=== PATIENT | male | born 1945 | race Hispanic/Latino ===

== ENCOUNTER 2018-11-17 10:06 | Inpatient (IN) | payer MEDICARE ==
--- NOTE | 2018-11-17 11:03 | ED PDOC ---
Arrival/HPI - General Chief Complaint: Altered Mental Status Time Seen by Provider: 11/17/18 10:08 Historian: Spouse - History of Present Illness Narrative History of Present Illness (Text): 11/17/18 11:00 A 73 year old male is brought into the emergency department via EMS for further evaluating of altered mental status. Patient's who is at bedside states that their daughter noticed the patient mumbling, confused, and not acting like himself this morning. The patient's reports that she last saw the patient acting normally last night. Patient is normally able to ambulate, but was unable to do so this morning. Primary Care: JOSE CRUZ [facility] Urologist: Dr. Bay Neurologist: Dr. Sequeira Sales Relationship Manager: Dr. Reid Time/Duration: Other (This Morning) Symptom Onset: Sudden Symptom Course: Unchanged Activities at Onset: Rest, Light Context: Home Past Medical History - Provider Review Nursing Documentation Reviewed: Yes - Travel History Have you recently traveled outside [place] w/in the past 3 mons?: No - Infectious Disease Hx of Infectious Diseases: None - Tetanus Immunization Tetanus Immunization: Unknown - Cardiac Hx Cardiac Disorders: No - Pulmonary Hx Respiratory Disorders: Yes Hx Chronic Obstructive Pulmonary Disease (COPD): Yes Hx Emphysema: Yes - Neurological Hx Neurological Disorder: No - HEENT Hx HEENT Disorder: No - Renal Hx Renal Disorder: Yes Hx Kidney Stones: Yes - Endocrine/Metabolic Hx Endocrine Disorders: Yes Hx Diabetes Mellitus Type 2: Yes - Hematological/Oncological Hx Blood Disorders: No - Integumentary Hx Dermatological Disorder: No - Musculoskeletal/Rheumatological Hx Musculoskeletal Disorders: No - Gastrointestinal Hx Gastrointestinal Disorders: Yes Other/Comment: hiatal hernia - Genitourinary/Gynecological Hx Genitourinary Disorders: No - Psychiatric Hx Psychophysiologic Disorder: No Hx Substance Use: No - Past Surgical History Past Surgical History: No Previous - Surgical History Hx Cardiac Catheterization: Yes Hx Coronary Stent: Yes (x1) - Anesthesia Hx Anesthesia Reactions: No Hx Malignant Hyperthermia: No - Suicidal Assessment Feels Threatened In Home Enviroment: No Family/Social History - Physician Review Nursing Documentation Reviewed: Yes Family/Social History: No Known Family HX Smoking Status: Former Smoker Hx Alcohol Use: No Hx Substance Use: No Hx Substance Use Treatment: No Allergies/Home Meds Allergies/Adverse Reactions: Allergies Penicillins Allergy (Verified 11/17/18 13:52) ANAPHYLAXIS Home Medications: Home Meds Medication Instructions Recorded Confirmed Gabapentin [Neurontin] 300 mg PO BID 11/17/18 11/17/18 Gabapentin [Neurontin] 300 mg PO BID 11/17/18 11/17/18 GlipiZIDE [Glipizide] 10 mg PO ACBD 11/17/18 11/17/18 GlipiZIDE [Glipizide] 10 mg PO BID 11/17/18 11/17/18 Insulin Detemir [Levemir] 18 unit SC BID 11/17/18 11/17/18 Insulin Detemir [Levemir] 30 unit SC BID 11/17/18 11/17/18 Meloxicam [Mobic] 15 mg PO DAILY 11/17/18 11/17/18 Metformin HCl [Glucophage] 1,000 mg PO BID 11/17/18 11/17/18 traZODone [trazODONE HYDROCHLORIDE] 50 mg PO HS 11/17/18 11/17/18 Review of Systems - Physician Review All systems were reviewed & negative as marked: Yes - Review of Systems Systems not reviewed;Unavailable: Altered Mental Status Physical Exam Vital Signs Reviewed: Yes Vital Signs Temp Pulse Resp BP Pulse Ox 11/17/18 10:18 99.7 F H 105 H 18 118/61 96 Temperature: Febrile Blood Pressure: Normal Pulse: Tachycardic Respiratory Rate: Normal Appearance: Positive for: Ill-Appearing Mental Status: No: Alert and Oriented X 3 (Alert and Oriented x 1) Finger Stick Blood Glucose: 222 - Systems Exam Head: Present: Atraumatic, Normocephalic, Other (Coarse Facies) Pupils: Present: PERRL Extroacular Muscles: Present: EOMI Conjunctiva: Present: Normal Mouth: Present: Dry Neck: Present: Normal Range of Motion Respiratory/Chest: Present: Clear to Auscultation, Decreased Breath Sounds (Due to body habitus. ). No: Wheezes, Rales, Rhonchi Cardiovascular: Present: Tachycardic Abdomen: No: Tenderness, Distention, Peritoneal Signs Back: Present: Normal Inspection Upper Extremity: Present: Normal Inspection. No: Cyanosis, Edema Lower Extremity: Present: Normal Inspection. No: Edema Neurological: No: Speech Normal (Intermittent verbal responses) Skin: Present: Warm, Dry, Normal Color. No: Rashes Psychiatric: Present: Alert. No: Oriented x 3 (oriented x 1) Medical Decision Making ED Course and Treatment: 11/17/18 11:09 Impression: A 73 year old male is brought into the emergency department for further evaluation of AMS this morning. Differential Diagnoses Includes But Is Not Limited To: --Sepsis --UTI --PNA Plan: -- Head CT -- EKG -- Blood/ Urine Culture -- Urinalysis -- Labs -- Reassess and disposition Prior Visits: Notes and results from previous visits were reviewed. Progress Notes: 11/17/18 23:15 Labs reviewed with no leukocytosis noted, but slightly elevated blood sugar. Case discussed in detail with Dr. Canseco(medical service) who accepts patient for admission. - Lab Interpretations Lab Results: 11/17/18 11:18 11/17/18 11:18 Lab Results 11/17/18 12:00: Prostate Specific Ag 5.6 H 11/17/18 11:24: Urine Color Yellow, Urine Appearance Clear, Urine pH 6.0, Ur Specific [place] >= 1.030, Urine Protein Trace H, Urine Glucose (UA) Negative, Urine Ketones 15 H, Urine Blood Trace-lysed H, Urine Nitrate Negative, Urine Bilirubin Negative, Urine Urobilinogen 0.2, Ur Leukocyte Esterase Trace H, Urine RBC 1 - 3 H, Urine WBC 2 - 5, Ur Epithelial Cells None, Urine Bacteria Mod 11/17/18 11:18: TSH 3rd Generation 1.61 11/17/18 11:18: Sodium 136, Chloride 102, Potassium 4.2, Carbon Dioxide 21, Anion Gap 17, BUN 15, Creatinine 0.7 L, Est GFR ( Amer) > 60, Est GFR (Non-Af Amer) > 60, Random Glucose 178 H, Calcium 9.8, Phosphorus 3.9, Magnesium 1.7, Total Bilirubin 0.9, AST 21, ALT 17, Alkaline Phosphatase 66, Total Protein 7.8, Albumin 4.3, Globulin 3.5, Albumin/Globulin Ratio 1.3 11/17/18 11:18: PT 14.1 H, INR 1.25, APTT 32.7 11/17/18 11:18: WBC 7.7, RBC 4.43, Hgb 13.7 L, Hct 40.3 L, MCV 91.0, MCH 30.9, MCHC 34.0, RDW 12.7, Plt Count 207, MPV 10.0, Neut % (Auto) 79.7 H, Lymph % (Auto) 7.3 L, [place] % (Auto) 9.8 H, Eos % (Auto) 3.1, Baso % (Auto) 0.1, Lymph # (Auto) 0.6 L, [place] # (Auto) 0.8 H, Eos # (Auto) 0.2, Baso # (Auto) 0.01, Absolute Neuts (auto) 6.10 11/17/18 11:15: pO2 48, VBG pH 7.39, VBG pCO2 35.0 L, VBG HCO3 21.2, VBG Total CO2 22.3, VBG O2 Sat (Calc) 89.1 H, VBG Base Excess -3.1 L, VBG Potassium 4.0, Sodium 134.0, Chloride 102.0, Glucose 188 H, Lactate 1.9, FiO2 21.0, Venous Blood Potassium 4.0 11/17/18 10:14: POC Glucose (mg/dL) 222 H I have reviewed the lab results: Yes - RAD Interpretation Narrative RAD Interpretations (Text): PROCEDURE: CT HEAD WITHOUT CONTRAST. Dictator : Brian Ruby MD Report Date : 11/17/2018 12:05:15 IMPRESSION: No evidence of acute intracranial hemorrhage or CT evidence of acute territorial infarct. Volume loss and white matter changes likely represent chronic microvascular ischemic disease. Chest X-ray Dictator : Brian Ruby MD Report Date : 11/17/2018 12:25:15 IMPRESSION: No active disease. Widening of the mediastinum noted. If clinically warranted further evaluation by CT is suggested to exclude aortic aneurysm or dissection. Radiology Orders: 11/17/18 10:40 CHEST PORTABLE [RAD] Stat 11/17/18 10:42 HEAD W/O CONTRAST [CT] Stat - EKG Interpretation Interpreted by ED Physician: Yes Type: 12 lead EKG - Medication Orders Current Medication Orders: Acetaminophen (Tylenol 325mg Tab) 650 mg PO Q4H PRN PRN Reason: Fever >100.4 F Last Admin: 11/25/18 18:06 Dose: 650 mg MAR Pain/Vitals Document 11/25/18 18:06 VIRER (Rec: 11/25/18 18:06 VIRER [id number] Pain Reassessment Is This A Pain ReAssessment? No Sleep Is patient sleeping during reassessment? No Presence of Pain Presence of Pain Yes Aspirin (Ecotrin) 81 mg PO DAILY [facility] Last Admin: 11/29/18 10:21 Dose: 81 mg Atorvastatin Calcium (Lipitor) 40 mg PO DIN [facility] Last Admin: 11/28/18 17:30 Dose: 40 mg Famotidine (Pepcid) 20 mg PO DAILY [facility] Last Admin: 11/29/18 10:21 Dose: 20 mg Gabapentin (Neurontin) 300 mg PO BID [facility]; Protocol Last Admin: 11/29/18 10:21 Dose: 300 mg Behavioural Document 11/29/18 10:21 CV (Rec: 11/29/18 10:21 CV [id number]) Maintenance Maintenance Dose Yes Guaifenesin (Robitussin) 100 mg PO Q6 [facility] Last Admin: 11/29/18 12:27 Dose: Not Given Non-Admin Reason: Patient Refused Sodium Chloride (Sodium Chloride 0.45%) 1,000 mls @ 50 mls/hr IV .Q20H [facility] Last Admin: 11/29/18 05:03 Dose: Not Given Non-Admin Reason: bag still running Insulin Detemir (Levemir) 25 unit SC ACBD [facility] Last Admin: 11/29/18 10:22 Dose: 25 units MAR Blood Glucose Document 11/29/18 10:22 CV (Rec: 11/29/18 10:22 CV [facility] [id number]) Blood Glucose Finger Stick Blood Glucose (70-120) 144 Subcutaneous Administrations Document 11/29/18 10:22 CV (Rec: 11/29/18 10:22 CV [id number]) Injection Site MAR Injection Site Right Abdomen Charges for Administration # of Subcutaneous Administrations 1 Insulin Human Regular (Humulin R Med) 0 units SC ACHS [facility]; Protocol Last Admin: 11/29/18 12:12 Dose: Not Given Non-Admin Reason: not eating that much Levalbuterol HCl (Xopenex) 0.63 mg IH TIDRESP [facility] Last Admin: 11/29/18 13:06 Dose: 0.63 mg Lisinopril (Zestril) 10 mg PO DAILY [facility] Last Admin: 11/29/18 10:21 Dose: 10 mg MAR Pulse and Blood Pressure Document 11/29/18 10:21 CV (Rec: 11/29/18 10:21 CV [id number]) Pulse Pulse Rate (60-90 beats/min) 86 Blood Pressure Blood Pressure (100/60-150/90 mm Hg) 125/70 Mupirocin (Bactroban Ointment) 0 gm TOP BID [facility] Last Admin: 11/29/18 10:23 Dose: 1 applic Nitroglycerin (Nitro-Bid 2% Oint) 1 ea TOP Q4H PRN PRN Reason: hypertension Ondansetron HCl (Zofran Inj) 4 mg IVP Q8H PRN PRN Reason: Nausea/Vomiting Last Admin: 11/18/18 14:17 Dose: 4 mg IVP Administration Document 11/18/18 14:17 LMN (Rec: 11/18/18 14:17 LMN [facility] [id number] Charges for Administration # of IVP Administrations 1 Discontinued Medications Acetaminophen (Tylenol 325mg Tab) 650 mg PO STAT [facility] Stop: 11/18/18 05:37 Last Admin: 11/18/18 05:46 Dose: 650 mg MAR Pain/Vitals Document 11/18/18 05:46 FDE (Rec: 11/18/18 05:46 FDE [id number]) Pain Reassessment Is This A Pain ReAssessment? Yes Sleep Is patient sleeping during reassessment? Yes Presence of Pain Presence of Pain No Acetaminophen (Tylenol 120mg Supp) 120 mg RC STAT STA Stop: 11/19/18 05:56 Acetaminophen (Tylenol 650 Mg Supp) 650 mg RC STAT STA Stop: 11/19/18 05:56 Last Admin: 11/19/18 06:13 Dose: 650 mg MAR Pain/Vitals Document 11/19/18 06:13 ROBBK (Rec: 11/19/18 06:13 ROBBK [id number]) Vitals Temperature (97.6 F-99.6 F) 102.0 F Temperature Source Oral Atorvastatin Calcium (Lipitor) 10 mg PO DIN [facility] Last Admin: 11/26/18 17:54 Dose: 10 mg Famotidine (Pepcid) 20 mg IVP DAILY [facility] Last Admin: 11/20/18 09:55 Dose: 20 mg IVP Administration Document 11/20/18 09:55 KL (Rec: 11/20/18 09:55 KL [facility] [id number]) Charges for Administration # of IVP Administrations 1 Heparin Sodium (Porcine) (Heparin) 5,000 units SC Q8 [facility]; Protocol Last Admin: 11/26/18 15:40 Dose: Not Given Non-Admin Reason: d/c Meropenem/Sodium Chloride (Merrem Iv 500 Mg/Ns 50 Ml) 500 mg in 50 mls @ 100 mls/hr IVPB STAT STA; Protocol Stop: 11/17/18 13:10 Last Admin: 11/17/18 13:19 Dose: 100 mls/hr eMAR Start Stop Document 11/17/18 13:19 OCS (Rec: 11/17/18 13:20 OCS [id number]) Intravenous Solution Start Date 11/17/18 Start Time 13:19 End Date 11/17/18 End time 13:49 Total Infusion Time 30 Sodium Chloride (Sodium Chloride 0.45%) 1,000 mls @ 80 mls/hr IV .[id number] [facility] Last Admin: 11/26/18 06:55 Dose: 80 mls/hr eMAR Start Stop Document 11/26/18 06:55 MB (Rec: 11/26/18 06:55 MB [facility] [id number]) Intravenous Solution Start Date 11/26/18 Start Time 06:55 Levofloxacin/Dextrose (Levaquin 500mg) 500 mg in 100 mls @ 100 mls/hr IVPB DAILY [facility]; Protocol Last Admin: 11/19/18 10:29 Dose: 100 mls/hr eMAR Start Stop Document 11/19/18 10:29 RDS (Rec: 11/19/18 10:29 RDS [facility] [id number]) Intravenous Solution Start Date 11/19/18 Start Time 10:29 End Date 11/19/18 End time 11:29 Total Infusion Time 60 Influenza Virus Vaccine (Flucelvax Quad 9322-6601 Syr) 60 mcg IM .ONCE ONE Stop: 11/17/18 17:52 Insulin Detemir (Levemir) 15 unit SC ACBD [facility] Last Admin: 11/28/18 08:11 Dose: 15 unit MAR Blood Glucose Document 11/28/18 08:11 CV (Rec: 11/28/18 08:12 CV [facility] [id number]) Blood Glucose Finger Stick Blood Glucose (70-120) 148 Subcutaneous Administrations Document 11/28/18 08:11 CV (Rec: 11/28/18 08:12 CV [id number]) Injection Site MAR Injection Site Left Abdomen Charges for Administration # of Subcutaneous Administrations 1 Insulin Human Regular (Humulin R Low) 0 units SC ACHS [facility]; Protocol Last Admin: 11/18/18 12:28 Dose: 2 units MAR Blood Glucose Document 11/18/18 12:28 LMN (Rec: 11/18/18 12:28 LMN [id number]) Blood Glucose Finger Stick Blood Glucose (70-120) 207 Subcutaneous Administrations Document 11/18/18 12:28 LMN (Rec: 11/18/18 12:28 LMN [id number]) Injection Site MAR Injection Site Right Arm Charges for Administration # of Subcutaneous Administrations 1 Lisinopril (Zestril) 2.5 mg PO DAILY [facility] Last Admin: 11/26/18 09:41 Dose: 2.5 mg MAR Pulse and Blood Pressure Document 11/26/18 09:41 AJ (Rec: 11/26/18 09:42 AJ [id number]) Pulse Pulse Rate (60-90 beats/min) 72 Blood Pressure Blood Pressure (100/60-150/90 mm Hg) 165/72 Lorazepam (Ativan) 1 mg IVP ONCE ONE; Protocol Stop: 11/20/18 17:26 Lorazepam (Ativan) 1 mg IVP ONCE ONE; Protocol Stop: 11/27/18 09:41 Last Admin: 11/27/18 09:56 Dose: 1 mg IVP Administration Document 11/27/18 09:56 AJ (Rec: 11/27/18 09:57 AJ [facility] [id number]) Charges for Administration # of IVP Administrations 1 Behavioural Document 11/27/18 09:56 AJ (Rec: 11/27/18 09:57 AJ [facility] [id number]) Maintenance Maintenance Dose Yes Nonmedicinal Nonmedicinal Interventions Redirect Therapeutic Communication Behavior Behavior for Medication: Anxiety Ondansetron HCl (Zofran Inj) 4 mg IVP STAT STA Stop: 11/17/18 12:03 Last Admin: 11/17/18 12:14 Dose: 4 mg IVP Administration Document 11/17/18 12:14 OCS (Rec: 11/17/18 12:14 OCS [id number]) Charges for Administration # of IVP Administrations 1 Oseltamivir Phosphate (Tamiflu Cap) 75 mg PO ONCE ONE; Protocol Stop: 11/18/18 20:56 Last Admin: 11/18/18 21:29 Dose: Not Given Non-Admin Reason: NPO Oseltamivir Phosphate (Tamiflu Cap) 30 mg PO DAILY [facility]; Protocol Last Admin: 11/20/18 09:54 Dose: 30 mg Oseltamivir Phosphate (Tamiflu Cap) 75 mg PO BID [facility]; Protocol Last Admin: 11/25/18 09:47 Dose: 75 mg Pneumococcal Polyvalent Vaccine (Pneumovax 23 Vaccine) 0.5 ml IM .ONCE ONE Stop: 11/17/18 17:52 Potassium Chloride (K-Dur 20 Meq Er Tab) 40 meq PO ONCE ONE Stop: 11/26/18 11:41 Last Admin: 11/26/18 12:24 Dose: 40 meq - Scribe Statement The provider has reviewed the documentation as recorded by the Miguelibgarret Begum Provider Scribe Attestation: All medical record entries made by the Scribe were at my direction and personally dictated by me. I have reviewed the chart and agree that the record accurately reflects my personal performance of the history, physical exam, medical decision making, and the department course for this patient. I have also personally directed, reviewed, and agree with the discharge instructions and disposition. Disposition/Present on Arrival - Present on Arrival Any Indicators Present on Arrival: No History of DVT/PE: No History of Uncontrolled Diabetes: No Urinary Catheter: No History of Decub. Ulcer: No History Surgical Site Infection Following: None - Disposition Have Diagnosis and Disposition been Completed?: Yes Diagnosis: Hyperglycemia, Altered mental status Disposition: HOSPITALIZED Disposition Time: 18:00 Patient Plan: Admission Condition: FAIR
[2018-11-17 11:29] LABS: VENOUS BLOOD GAS BASE EXCESS -3.1 mmol/L (0.0-2.0); VENOUS BLOOD GAS PO2 48 mm/Hg (30-55); VENOUS BLOOD PH 7.39 (7.32-7.43)
[2018-11-17 11:41] LABS: BASO # 0.01 K/mm3 (0.0-2.0); BASO % 0.1 % (0.0-3.0); EOS # 0.2 (0.0-0.7); EOS % 3.1 % (1.5-5.0); HEMOGLOBIN 13.7 g/dL (14.0-18.0); LYMPH # 0.6 (1.2-3.4); LYMPH % 7.3 % (22.0-35.0); MEAN CORPUSCULAR HEMOGLOBIN 30.9 pg (25.0-35.0); MONO # 0.8 (0.1-0.6); MONO % 9.8 % (1.0-6.0); RBC 4.43 10^6/uL (3.5-6.1); RED CELL DISTRIBUTION WIDTH 12.7 % (11.5-14.5); WHITE BLOOD COUNT 7.7 10^3/uL (4.5-11.0)
[2018-11-17 11:52] LABS: ALB/GLOB RATIO 1.3 (1.1-1.8); ALBUMIN 4.3 g/dL (3.0-4.8); ALT/SGPT 17 U/L (7-56); AST/SGOT 21 U/L (17-59); BLOOD UREA NITROGEN 15 mg/dL (7-21); CALCIUM 9.8 mg/dL (8.4-10.5); GFR NON-AFRICAN AMERICAN > 60; INR 1.25; PARTIAL THROMBOPLASTIN TIME 32.7 Seconds (26.9-38.3); PROTHROMBIN TIME 14.1 SECONDS (9.4-12.5)
[2018-11-17 11:58] LABS: URINE BILIRUBIN NEGATIVE (NEGATIVE); URINE BLOOD TRACE-LYSED (NEGATIVE); URINE GLUCOSE (UA) NEGATIVE (NEGATIVE); URINE LEUKOCYTE ESTERASE TRACE Leu/uL (NEGATIVE); URINE PROTEIN TRACE mg/dL (<30 mg/dL); URINE UROBILINOGEN 0.2 E.U./dL (<1 E.U./dL)
[2018-11-17 11:59] LABS: URINE APPEARANCE CLEAR (CLEAR); URINE COLOR YELLOW (YELLOW)
[2018-11-17 12:08] LABS: URINE BACTERIA MOD /hpf
--- NOTE | 2018-11-17 12:08 | CT ---
Date of service: 11/17/2018 PROCEDURE: CT HEAD WITHOUT CONTRAST. HISTORY: altered mental status COMPARISON: None available. TECHNIQUE: Axial computed tomography images were obtained through the head/brain without intravenous contrast. Radiation dose: Total exam DLP = 1041.37 mGy-cm. This CT exam was performed using one or more of the following dose reduction techniques: Automated exposure control, adjustment of the mA and/or kV according to patient size, and/or use of iterative reconstruction technique. FINDINGS: HEMORRHAGE: No intracranial hemorrhage. BRAIN: There is focal encephalomalacia at the medial aspect of the right temporal lobe likely represent old infarct. There is also sub centimeter encephalomalacia at anterior aspect of the right coronal radiata likely represent old lacunar infarct. Atrophy and white matter changes likely represent chronic microvascular ischemic disease. VENTRICLES: Unremarkable. No hydrocephalus. CALVARIUM: Unremarkable. PARANASAL SINUSES: Unremarkable as visualized. No significant inflammatory changes. MASTOID AIR CELLS: Unremarkable as visualized. No inflammatory changes. OTHER FINDINGS: None. IMPRESSION: No evidence of acute intracranial hemorrhage or CT evidence of acute territorial infarct. Volume loss and white matter changes likely represent chronic microvascular ischemic disease.
--- NOTE | 2018-11-17 12:29 | RAD ---
Date of service: 11/17/2018 HISTORY: altered mental status COMPARISON: Comparison is made to the previous study dated 08/31/2013 FINDINGS: LUNGS: No evidence of new infiltrate or consolidation in the lungs. PLEURA: No significant pleural effusion identified, no pneumothorax apparent. CARDIOVASCULAR: Interval widening of the mediastinum noted which could be due to increase in the size of the thoracic aorta. Normal cardiac size. No pulmonary vascular congestion. OSSEOUS STRUCTURES: No significant abnormalities. VISUALIZED UPPER ABDOMEN: Normal. OTHER FINDINGS: None. IMPRESSION: No active disease. Widening of the mediastinum noted. If clinically warranted further evaluation by CT is suggested to exclude aortic aneurysm or dissection.
[2018-11-17] MEDS ORDERED: MEROPENEM 500 MG in NS 500 MG/50 ML BAG IVPB STA (12:41)
--- NOTE | 2018-11-17 13:00 | CARD ---
APPROVED REPORT Date of service: 11/17/2018 EKG Measurement Heart [id number] ND 176P [id number] <Conclusion> Sinus tachycardia Right bundle branch block Abnormal ECG
[2018-11-17] MEDS ORDERED: Iohexol 350 MG/100 ML VIAL ONE ×2 (13:43→14:42)
[2018-11-17] MEDS: Sodium Chloride 0.45% 1,000 ML IV SCH (17:48)
[2018-11-17] MEDS ORDERED: Influenza Vaccine 60 mcg/0.5 mL SYR (4YR UP) IM ONE (17:51)
[2018-11-17] MEDS ORDERED: Pneumococcal 23-Valent Vaccine IM ONE (17:51)
[2018-11-17 17:52] VITALS: BMI 30.7
[2018-11-17] MEDS: Insulin Reg-LOW-Coverage SC SCH (22:00)
[2018-11-18] MEDS: Sodium Chloride 0.45% 1,000 ML IV SCH ×2 (05:16→22:10)
--- NOTE | 2018-11-18 06:21 | CP.PCM.PN ---
Subjective - Date & Time of Evaluation Date of Evaluation: 11/18/18 Time of Evaluation: 06:08 - Subjective Subjective: It was requested to Co-sign order of tylenol which was ordered for temp 101.3*F. Patient was seen. He is not communicating much. Tries to verbalize indistinct speech. As per nurse has no other complaints. Medical record was reviewed. This 73 year old white male was admitted for altered mental status, confusion. Blood culture,urine culture were done ,received merem in the ER. Has PMH of DM,HTN,CAD,COPD. Objective - Vital Signs/Intake and Output Vital Signs (last 24 hours): Temp Pulse Resp BP Pulse Ox 101.3 F H 95 H 18 150/79 94 L 11/18/18 05:39 11/18/18 05:39 11/18/18 05:39 11/18/18 05:39 11/18/18 05:39 Intake and Output: 11/17/18 11/18/18 18:59 06:59 Intake Total 300 200 Balance 300 200 - Medications Medications: Current Medications Acetaminophen (Tylenol 325mg Tab) 650 mg PO Q4H PRN PRN Reason: Fever >100.4 F Sodium Chloride (Sodium Chloride 0.45%) 1,000 mls @ 80 mls/hr IV .[id number] [facility] Last Admin: 11/18/18 05:16 Dose: 80 mls/hr Insulin Human Regular (Humulin R Low) 0 units SC ACHS [facility]; Protocol Last Admin: 11/17/18 22:00 Dose: Not Given - Labs Labs: 11/17/18 11:18 11/17/18 11:18 PT 14.1 SECONDS (9.4-12.5) H 11/17/18 11:18 INR 1.25 11/17/18 11:18 APTT 32.7 Seconds (26.9-38.3) 11/17/18 11:18 - Constitutional Appears: Well, No Acute Distress - Head Exam Head Exam: ATRAUMATIC, NORMAL INSPECTION, NORMOCEPHALIC - Eye Exam Eye Exam: Normal appearance - ENT Exam ENT Exam: Normal External Ear Exam - Neck Exam Neck Exam: Normal Inspection - Respiratory Exam Respiratory Exam: NORMAL BREATHING PATTERN - Cardiovascular Exam Cardiovascular Exam: absent: JVD - GI/Abdominal Exam GI & Abdominal Exam: absent: Distended - Rectal Exam Rectal Exam: Deferred - Exam Additional comments: Deferred. - Extremities Exam Extremities Exam: Normal Inspection - Back Exam Back Exam: NORMAL INSPECTION - Neurological Exam Neurological Exam: Awake - Psychiatric Exam Psychiatric exam: Normal Affect, Normal Mood - Skin Skin Exam: Normal Color Assessment and Plan - Assessment and Plan (Free Text) Assessment: Fever. Altered mental status. Borderline anemia. Hyperglycemia. Elevated PSA. Obesity. DM. HTN. COPD. Plan: Tylenol was ordered for fever. Awaiting neurology consult. Urine has leukocyte esterase positive. Need to continue IV antibiotic. Continue present management.
[2018-11-18 08:37] LABS: BASO # 0.02 K/mm3 (0.0-2.0); BASO % 0.3 % (0.0-3.0); EOS # 0.1 (0.0-0.7); HEMOGLOBIN 13.2 g/dL (14.0-18.0); LYMPH # 0.9 (1.2-3.4); LYMPH % 14.6 % (22.0-35.0); MEAN CELL VOLUME 91.8 fl (80.0-105.0); MEAN CORPUSCULAR HEMOGLOBIN 30.2 pg (25.0-35.0); MEAN CORPUSCULAR HGB CONC 32.9 g/dl (31.0-37.0); MEAN PLATELET VOLUME 10.1 fl (7.0-11.0); MONO # 0.9 (0.1-0.6); MONO % 15.1 % (1.0-6.0); RBC 4.37 10^6/uL (3.5-6.1); WHITE BLOOD COUNT 6.2 10^3/uL (4.5-11.0)
[2018-11-18 08:54] LABS: BLOOD UREA NITROGEN 14 mg/dL (7-21); CALCIUM 9.3 mg/dL (8.4-10.5); GFR NON-AFRICAN AMERICAN > 60
[2018-11-18] MEDS: Insulin Reg-LOW-Coverage SC SCH ×2 (12:28)
[2018-11-18] MEDS: levoFLOXacin 500 mg in D5W 500 MG/100 ML BAG IVPB SCH (12:28)
[2018-11-18] MEDS: Levalbuterol 0.63 MG/3 ML Inhal Soln UD IH SCH ×2 (14:17→21:00)
--- NOTE | 2018-11-18 15:47 | CON ---
DATE: 11/18/2018 CHIEF COMPLAINT: Altered mental status. HISTORY OF PRESENT ILLNESS: This is a 73-year-old male, with history of type 2 diabetes mellitus, hypertension, coronary artery disease, and COPD, who was admitted for altered mental status, confused, noticed by , mumbling and not acting himself. He was brought to hospital for further evaluation. CAT scan of the head showed old encephalomalacia in the right temporal and right newman radiata consistent with old infarcts, lacunar type. The patient is lethargic, but follows simple commands. He has subtle left-sided weakness, likely from prior CVA. He withdraws to localized noxious stimulus. He had elevated temperature of 101.3 this morning. There are some hypoglycemic events and mildly dehydrated. PAST MEDICAL HISTORY: As above. FAMILY HISTORY: Noncontributory. SOCIAL HISTORY: No illicit drug use, smoking, or EtOH abuse. ALLERGIES: ALLERGIC TO PENICILLIN. MEDICATIONS: Reviewed by nurse reconciliation sheet. REVIEW OF SYSTEMS: A 14-point review of systems is negative except as per HPI. PHYSICAL EXAMINATION: GENERAL: The patient is lethargic; in no acute distress. VITAL SIGNS: Temperature 99.5, pulse of 83, blood pressure 130/70, and respiratory rate of 18. HEENT: Atraumatic and normocephalic. PERRLA. Extraocular muscles intact. NECK: Supple. No JVD. No adenopathy noted. LUNGS: Clear to auscultation. No adventitious sounds. HEART: S1 and S2, normal rate and rhythm. No murmurs, rubs, or gallops. ABDOMEN: Soft and nontender. Normoactive bowel sounds present. EXTREMITIES: No clubbing. No cyanosis. Peripheral pulses are 2+ bilaterally. NEUROLOGIC: The patient is lethargic, in no acute distress; alert and oriented to person and place, not much to month and year. Recall after 5 minutes is 0/3. Poor attention span. Slow thought process. Cranial nerves II through XII are intact. Speech is hypophonic. No aphasia noted. Motor exam; moves all extremities spontaneously. He has subtle residual left-sided weak from prior CVA seen on the CAT scan of the head. DTRs are 2+ throughout and 1 at the ankles. Coordination; [id number] is intact. No dysmetria noted. Gait is deferred for now. LABORATORY DATA: Sodium 132, potassium 3.7, chloride 98, carbon dioxide 23, BUN of 14, creatinine 0.7, and random glucose 170. PSA is 5.6, it is elevated. 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 RECOMMENDATIONS: At this time: 1. Continue guanfacine for his underlying cough. 2. Monitor his blood sugars, keep his blood sugars between 140 to 180 and avoid hyperglycemic accelerations. 3. Avoid any sedative medications. 4. PT/OT assessment. 5. WV of the brain to assess for any encephalo process and continue with current and present medical management. Thank you for this consult. Mike Sequeira MD
[2018-11-18] MEDS: Insulin Reg-MEDIUM-Coverage SC SCH ×2 (17:28→22:03)
[2018-11-19] MEDS: guaiFENesin 100 mg/5 ml Syrup UD PO SCH ×4 (05:32→18:26)
[2018-11-19 07:04] LABS: BLOOD UREA NITROGEN 15 mg/dL (7-21); GFR NON-AFRICAN AMERICAN > 60
[2018-11-19] MEDS: Insulin Reg-MEDIUM-Coverage SC SCH ×4 (07:49→21:24)
[2018-11-19] MEDS: Levalbuterol 0.63 MG/3 ML Inhal Soln UD IH SCH ×3 (08:11→20:08)
[2018-11-19] MEDS: Sodium Chloride 0.45% 1,000 ML IV SCH ×2 (09:30→19:56)
[2018-11-19] MEDS: levoFLOXacin 500 mg in D5W 500 MG/100 ML BAG IVPB SCH (10:29)
--- NOTE | 2018-11-19 12:36 | PN ---
DATE: 11/18/2018 SUBJECTIVE: This 73-year-old male was examined at his bedside on the cardiac fernandez of the [facility] on the morning of 11/18/2018. Present for this interview was his daughter, Trina, his Tsering, and nurse Jacki Crystal, registered nurse. The patient remains weak and deconditioned, and at present, bedridden. He is more alert today. He does know his name, but could not recite where he was or what day it was. He did know that his and daughter were present for the interview. Nursing staff reported that he is able to tolerate clear liquids as proved by speech pathologist and swallowing eval, and at present, remains in a sinus rhythm on the personnel monitor. The patient was admitted with altered mental status and concerns of sepsis versus urinary tract infection and has insulin-dependent diabetes mellitus, peripheral neuropathy, and marked deconditioning. According to the family, he has chronic right-sided weakness. PHYSICAL EXAMINATION: VITAL SIGNS: At the moment, his temperature was 101.3, respirations 18, pulse 95 and blood pressure 150/79 with a pulse ox of 94%. HEENT: Head is normocephalic, atraumatic. Eyes: No icterus. Ears: Clear. Throat: Noninjected. NECK: Supple. HEART: Regular S1, S2. LUNGS: With occasional rhonchi that cleared with coughing. ABDOMEN: Soft. EXTREMITIES: No edema. SKIN: Without rash. NEUROLOGIC: Deconditioned, weakness on the right chronically. VASCULAR: Legs warm to touch. PSYCHOLOGIC: Can say his name, but confused to place and time. LABORATORY DATA: White count 6200, hemoglobin 13.2, hematocrit 40.1, platelets 198,000. Sodium 132, K 3.7, chloride 98, bicarb 23, BUN 14, creatinine 0.7, random blood sugar 170. IMPRESSION: This is a 73-year-old male with urinary tract infection, history of benign prostate hypertrophy and comorbidities of peripheral neuropathy, insulin-dependent diabetes mellitus and marked deconditioning with metabolic encephalopathy and degenerative arthritis. PLAN: My plans at present as discussed with the patient, nursing, and family at bedside will be to continue heparin 5000 units subcu every 8 hours for DVT prophylaxis while rotating the patient frequently to prevent skin breakdown and we will now increase his diet to Humulin R medium insulin coverage. Continue Levaquin 500 mg IV every 24 hours. He is ordered to have Xopenex inhalational therapy 0.63 mg t.i.d. along with nasal O2 and 0.45 saline at 80 mL/hour with Robitussin 5 mL p.o. every 6 hours p.r.n. cough administered for his pulmonary congestion. Greater than 35 minutes was spent in the care management, review of labs, orders and x-rays. We are currently awaiting a neurological evaluation by Dr. Mike Sequeira for his metabolic encephalopathy, peripheral neuropathy, and chronic right-sided weakness. All of the above was reviewed with the patient, family and nursing. All questions were answered. Ranede Canseco MD MTDD
--- NOTE | 2018-11-19 13:10 | PN ---
DATE: 11/19/2018 SUBJECTIVE: This 73-year-old male was examined at the [facility] on the morning of 11/19/2018. I did review this patient's case with Dr. Mike Sequeira from Neurology. The patient was admitted with altered mental status, confusion, and change in behavioral activity. His CAT scan on review showed old encephalomalacia involving the right temporal and right newman radiata consistent with old infarcts of the lacunar type and the patient remains lethargic, but is able to follow simple commands. His left-sided weakness is likely prior to a previous CVA and the patient is felt to have metabolic encephalopathy. At present, he is being readied for MRI for completeness sake. Of note because of concerns of sepsis due to viral etiology, I did order a influenza serology which is indeed positive for influenza A. Also the patient last evening was noted to have nausea and vomiting, was made n.p.o., and given IV Zofran and IV Pepcid with good result. PHYSICAL EXAMINATION: VITAL SIGNS: At present, his temperature is 96.6, respirations 20, pulse 94 and blood pressure 136/87 with a pulse ox of 100% on 2 liters nasal O2. HEENT: Head: Normocephalic, atraumatic. Eyes: No icterus. Ears: Clear. Throat noninjected. NECK: Supple. HEART: S1, S2. LUNGS: Occasional rhonchi that clear with coughing. ABDOMEN: Soft. EXTREMITIES: No edema. SKIN: Without rash. NEUROLOGIC: Consistent with metabolic encephalopathy. VASCULAR: Legs warm to touch. PSYCHOLOGIC: Alert, but confused. LABORATORY DATA: White count 6200, hemoglobin 13.2, hematocrit 40.1, platelets 198,000. Influenza A serology positive. Sodium 132, K 3.7, chloride 98, bicarb 23, BUN 14, creatinine 0.7, and random blood sugar 170. PSA, as expected, was elevated at 5.6 in the setting of chronic benign prostate hypertrophy and his TSH is 1.61, normal. IMPRESSION: A 73-year-old male with altered mental status, metabolic encephalopathy, old stroke, encephalomalacia, chronic left-sided weakness, now with insulin-dependent diabetes mellitus, influenza A and gastroenteritis. PLAN: The plan is to continue subcu heparin, Humulin R medium insulin coverage a.c. mealtime and h.s., IV Levaquin pending urine and blood cultures, IV Pepcid, Robitussin, 0.45 saline at 80 mL/hour, Tylenol, Xopenex, and p.r.n. Zofran. The patient will be started on Tamiflu, be put in respiratory isolation, and greater than 60 minutes was spent in the care management, outlining of orders and discussion of this patient with nursing, Dr. Sequeira from Neurology, and family. All questions were answered. Randee Canseco MD
--- NOTE | 2018-11-19 15:01 | HP ---
DATE OF EXAM: 11/17/2018 HISTORY OF PRESENT ILLNESS: This 73-year-old male was examined at his bedside on the afternoon of 11/17/2018. Present for this interview was nurse, Letitia Grover, registered nurse; his , Tsering; and daughter, Trina. The patient was brought to the [facility] earlier this morning and was evaluated by Dr. Bradley Graham, medical doctor. He was noted to be altered in his mental status, he could say his name, had no understanding of where he was or what day it was. The patient does have marked deconditioning secondary to chronic peripheral neuropathy according to family members; however, earlier today, the patient's reported he was not acting normally since last evening and was unable to ambulate. In the emergency room, he underwent evaluation including chest x-ray that was reviewed and showed no significant pleural effusion, no pneumothorax, no infiltrate or evidence of consolidation in his lungs. However, he was noted to have a widened mediastinum and a CT of the chest is pending. 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 The patient's EKG was reviewed, it showed a sinus tachycardia with right bundle-branch block and nonspecific ST-T wave changes. The patient was admitted for altered mental status, rule out sepsis and further evaluation of confusional state. On questioning the family, the patient has an ALLERGY TO PENICILLIN. 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 He has no current history of drinking, smoking or IV drug misuse or abuse. OUTPATIENT MEDICATIONS: Included Neurontin, glipizide, trazodone, metformin, Levemir insulin, and Mobic. FAMILY HISTORY: Noncontributory. REVIEW OF SYSTEMS CONSTITUTIONAL REVIEW: There was no fever, no chills. HEAD: No recent head trauma or seizures. EYE REVIEW: No change in visual acuity. EAR REVIEW: No hearing loss. THROAT REVIEW: No swallowing difficulty. NECK REVIEW: No stiffness. CARDIAC REVIEW: No reports of chest pain or palpitation. PULMONARY: No cough. No hemoptysis. GI: No hematemesis. No melena. : Has a history of benign prostate hypertrophy and follows with Dr. Bay from Urology. NEUROLOGY: Peripheral vascular disease. Family was not aware of any stroke in his past, but he is markedly deconditioned on a chronic basis and when ambulatory only with a rolling walker and assistance. SKIN: No rash. ENDOCRINOLOGIC: He has insulin-dependent diabetes mellitus. MUSCULOSKELETAL: Degenerative arthritis. PSYCHOLOGICAL: Currently altered mental status. PHYSICAL EXAMINATION VITAL SIGNS: The patient was in a sinus to sinus tachycardia rhythm on the shackler with a temperature of 97.5, respirations 18, pulse 104, and blood pressure 161/86 with a pulse ox of 95% on room air. HEENT: Head: Normocephalic, atraumatic. Eyes: No icterus. Ears: Clear. Throat: Noninjected. NECK: Supple. HEART: Regular S1, S2. No pathological rubs, murmurs or gallops. LUNGS: Had occasional rhonchi that cleared with coughing. ABDOMEN: Soft. EXTREMITIES: No edema. SKIN: Without rash. NEUROLOGICAL: Intact. PSYCHOLOGICAL: He knows his name, but not where he is or what day it is and has marked deconditioning and chronic weakness on the right side. VASCULAR: Legs warm to touch. SKIN: Without breakdown. LABORATORY DATA: Sodium 136, K 4.2, chloride 102, bicarb 21, BUN 15, creatinine 0.7, random blood sugar 178, calcium 9.8, phosphorous 3.9, magnesium 1.7, bilirubin 0.9. AST 21, ALT 17 and alk phos 66. White count 7700, hemoglobin 13.7, hematocrit 40.3, platelets 207,000. Urinalysis showed moderate bacteria, trace protein and PT/INR 1.25, PTT 32.7. IMPRESSION: This is a 73-year-old male with altered mental status, marked deconditioning in the setting of chronic diabetes mellitus insulin-dependent, and peripheral neuropathy, now with metabolic encephalopathy, rule out sepsis, rule out viral syndrome, probable urinary tract infection in the setting of benign prostatic hypertrophy. PLAN: The plan as discussed with the patient, nursing, family at bedside will be to admit this patient while awaiting blood and urine cultures. He is ordered to receive heparin subcutaneous 5000 units every 8 hours, Levaquin 500 mg IV every 24 hours given PENICILLIN ALLERGY. He will be ordered to have regular insulin coverage a.c., meals and at bedtime, Tylenol 650 p.o. every 6 hours p.r.n. pain or temperature greater than 101. He is ordered to be on aspiration precautions, neuro checks every shift, sequential compression antiembolism device stockings and a physical therapy for ambulation and range of motion consultation has been requested as well as the consultation with Dr. Mike Sequeira from Neurology given his altered mental status. Greater than 75 minutes was spent in the care management, outlining of orders and discussion of this patient with himself, the family at bedside, nursing, and emergency room physician, Dr. Bradley Graham. All questions were answered. Randee Canseco MD MTDD
[2018-11-20] MEDS: guaiFENesin 100 mg/5 ml Syrup UD PO SCH ×4 (00:30→18:01)
[2018-11-20] MEDS: Levalbuterol 0.63 MG/3 ML Inhal Soln UD IH SCH ×3 (07:23→20:00)
[2018-11-20 07:35] LABS: HEMOGLOBIN 13.6 g/dL (14.0-18.0); MEAN CELL VOLUME 89.3 fl (80.0-105.0); MEAN CORPUSCULAR HEMOGLOBIN 30.9 pg (25.0-35.0); MEAN CORPUSCULAR HGB CONC 34.6 g/dl (31.0-37.0); MEAN PLATELET VOLUME 10.2 fl (7.0-11.0); RBC 4.4 10^6/uL (3.5-6.1); RED CELL DISTRIBUTION WIDTH 12.9 % (11.5-14.5); WHITE BLOOD COUNT 11.7 10^3/uL (4.5-11.0)
[2018-11-20 07:45] LABS: BLOOD UREA NITROGEN 14 mg/dL (7-21); CALCIUM 9.1 mg/dL (8.4-10.5); GFR NON-AFRICAN AMERICAN > 60
[2018-11-20] MEDS: Insulin Reg-MEDIUM-Coverage SC SCH ×4 (08:56→22:30)
[2018-11-20] MEDS: Sodium Chloride 0.45% 1,000 ML IV SCH ×3 (08:57→22:11)
--- NOTE | 2018-11-20 09:17 | CT ---
Date of service: 11/19/2018 PROCEDURE: CT HEAD WITHOUT CONTRAST. HISTORY: Repeat Head CT COMPARISON: 11/17/2018 TECHNIQUE: Axial computed tomography images were obtained through the head/brain without intravenous contrast. Radiation dose: Total exam DLP = 1177.03 mGy-cm. This CT exam was performed using one or more of the following dose reduction techniques: Automated exposure control, adjustment of the mA and/or kV according to patient size, and/or use of iterative reconstruction technique. FINDINGS: HEMORRHAGE: No intracranial hemorrhage. BRAIN: No mass effect or edema. Chronic microvascular changes are seen in the periventricular white matter and basal ganglia VENTRICLES: Unremarkable. No hydrocephalus. CALVARIUM: Unremarkable. PARANASAL SINUSES: Unremarkable as visualized. No significant inflammatory changes. MASTOID AIR CELLS: Unremarkable as visualized. No inflammatory changes. OTHER FINDINGS: The report concurs with the preliminary [facility] report IMPRESSION: No acute intracranial abnormalities
--- NOTE | 2018-11-20 21:01 | PN ---
DATE: 11/20/2018 SUBJECTIVE: This 73-year-old male was examined on the cardiac fernandez of the [facility] on the morning of 11/20/2018. Present for the interview was his Tsering and the case was reviewed in detail with nurse, Monalisa Rivera, registered nurse. The patient remains with fever. He is more alert. He knows his name. He knows his 's name and he knows that he is in the [facility]. He was admitted with severe confusion and temperature greater than 102 and clinical metabolic encephalopathy. At present, serology showing influenza A positivity and he is being treated with p.o. Tamiflu. He remains in normal sinus rhythm on the satellite project site monitor and remained weak, deconditioned and bedridden. PHYSICAL EXAMINATION: VITAL SIGNS: He was in a normal sinus rhythm on satellite project site monitor. Temperature was 99.5, respirations 18, pulse 77 and blood pressure 148/84. Pulse ox 95%. HEENT: Head: Normocephalic, atraumatic. Eyes: No icterus. Ears: Clear. Throat: Noninjected. NECK: Supple. HEART: S1, S2. LUNGS: Clear. ABDOMEN: Soft. EXTREMITIES: No edema. SKIN: Without rash. NEUROLOGICAL: Marked deconditioning, left-sided weakness. VASCULAR: Legs warm to touch. PSYCHOLOGICAL: Alert but confused. LABORATORY DATA: Blood and urine cultures are negative to date. White count 11,700, hemoglobin 13.6, hematocrit 39.3, platelets 150,000. PTT 36.7. Sodium 132, K 3.6, chloride 99, bicarb 23, BUN 14, creatinine 0.7, random blood sugar 182. PSA 5.6 and calcium 9.1. Urinalysis showed moderate bacteria. Urine culture was negative and serology was positive for influenza A. IMPRESSION: A 73-year-old male with influenza A, persistent fevers, marked deconditioning, chronic left-sided weakness secondary to old lacunar infarct, insulin-dependent diabetes mellitus, peripheral neuropathy, history of benign prostate hypertrophy, and degenerative arthritis. At present, the patient continues on subcutaneous heparin due to bedridden status for deep venous thrombosis prevention and on insulins. He will continue on oral Pepcid, Robitussin, 0.45 saline at 80 mL/hour, Tamiflu 75 mg by mouth two times daily, Tylenol 650 by mouth every 4 hours as needed for fever, Xopenex inhalational therapy and as-needed Zofran. I have asked his nurse to advance his diet from liquid to full liquids as tolerated. He is awaiting a brain without contrast MRI scan for completeness sake, remains on isolation and aspiration precautions, is wearing sequential anti-embolism compression device stockings, and has an order for physical therapy for out of bed to chair and reconditioning. Greater than 35 minutes was spent in the care management, review of labs, orders, x-rays and discussion of this patient with nursing and his at the bedside. All questions were answered. Randee Canseco MD
[2018-11-21] MEDS: guaiFENesin 100 mg/5 ml Syrup UD PO SCH ×5 (00:50→17:31)
[2018-11-21] MEDS: Sodium Chloride 0.45% 1,000 ML IV SCH ×3 (06:06→21:38)
[2018-11-21] MEDS: Levalbuterol 0.63 MG/3 ML Inhal Soln UD IH SCH ×3 (07:56→19:47)
[2018-11-21] MEDS: Insulin Reg-MEDIUM-Coverage SC SCH ×4 (08:18→22:30)
--- NOTE | 2018-11-21 12:37 | CP.PCM.PCO ---
Physician Communication Note - Physician Communication Note Physician Communication Note: REVEIWED CT HEAD. HOLD MRIBRAIN. C/W MX FOR FLU. THX.
--- NOTE | 2018-11-21 21:39 | PN ---
DATE: 11/21/2018 SUBJECTIVE: This 73-year-old male remains hospitalized in the [facility] on the cardiac fernandez on the morning of 11/21/2018. This case was reviewed in detail today with his nurse, Aminta Quintana, Registered Nurse. The patient once again was attempted to have advancement of his diet. This included full liquids with soft food as well as mechanically finely-chopped food. He was unsuccessful at with this attempt since it caused a choking-like sensation. The patient was reevaluated by Yessenia Gardner from speech pathology who feels the patient would better tolerate a pureed dysphagia diet which has now been ordered. The patient is still running fevers in the setting of recently diagnosed influenza A and earlier this morning had a temperature of 100.9. He remains on IV fluids and oral Tamiflu. PHYSICAL EXAMINATION: VITAL SIGNS: At present, temperature is 99, previously 100.9 with a respiratory pattern of 20 per minute, pulse 95, blood pressure 144/87 and pulse oximetry 97% on 2 liters nasal O2. He remains in sinus rhythm on the hospital monitor. HEENT: Head: Normocephalic, atraumatic. Eyes: No icterus. Ears: Clear. Throat: Noninjected. NECK: Supple. HEART: Regular. S1 and S2. No pathological rubs, murmurs, gallops. LUNGS: With occasional rhonchi that clear with coughing. ABDOMEN: Soft. EXTREMITIES: No edema. SKIN: Without rash. NEUROLOGICAL: Chronic left-sided weakness. PSYCHOLOGICAL: Alert. VASCULAR: Legs warm to touch. LABORATORY DATA: White count 11,700, hemoglobin 13.6, hematocrit 39.3, platelets 250,000. Sodium 132, K 3.6, chloride 99, bicarb 23, BUN 14, creatinine 0.7, random blood sugar 182. Influenza A serology was positive. Urinalysis showed moderate bacteria with a PSA of 5.6 in a gentleman with benign prostate hypertrophy, and blood and urine cultures are showing no growth. IMPRESSION: This is a 73-year-old male admitted with metabolic encephalopathy in the setting of influenza A, now with difficulty swallowing probably on the basis of his viral illness and longstanding history of left-sided weakness secondary to old lacunar infarcts in the setting of insulin-dependent diabetes mellitus, peripheral neuropathy and degenerative arthritis. PLAN: At present is to maintain the patient on the cardiac fernandez where he will continue to receive subcutaneous heparin for DVT prophylaxis, regular or medium insulin coverage before meals and at bedtime, Pepcid 20 mg p.o. daily, Robitussin 100 mL p.o. every 6 hours p.r.n. cough, 0.45 saline at 80 mL/hour, Tamiflu 75 mg p.o. b.i.d., Tylenol 650 mg p.o. every 4 hours p.r.n. pain or temperature greater than 101, Xopenex inhalational therapy 0.63 mg t.i.d. and Zofran 4 mg IV every 8 hours p.r.n. nausea and vomiting. As discussed with nurse, Aminta Quintana, the patient is awaiting a brain MRI as per Neurology request. He remains on neuro checks every shift, aspiration precautions, isolation precautions and continues to wear sequential compression device, antiembolism stockings with a daily order for physical therapy for reconditioning and gait training. Greater than 35 minutes was spent in the care management, review of labs, orders, x-rays, discussion of this patient with nursing and adjustment of orders and discussion with pharmacy. All questions were answered Randee Canseco MD MTDD
[2018-11-22] MEDS: guaiFENesin 100 mg/5 ml Syrup UD PO SCH ×5 (00:30→23:08)
[2018-11-22] MEDS: Levalbuterol 0.63 MG/3 ML Inhal Soln UD IH SCH ×3 (08:02→20:15)
[2018-11-22] MEDS: Insulin Reg-MEDIUM-Coverage SC SCH ×4 (08:40→22:56)
[2018-11-22] MEDS: Sodium Chloride 0.45% 1,000 ML IV SCH ×2 (10:09→23:06)
--- NOTE | 2018-11-22 14:58 | PN ---
DATE: 11/22/2018 SUBJECTIVE: This 73-year-old male was examined on the cardiac fernandez at the [facility] on the morning of 11/22/2018. Present for the interview was his , Tsering, and his daughter, Trina. The case was also reviewed in detail with nurse, Monalisa Rivera, registered nurse. The patient reportedly remains weak and deconditioned and having difficulty swallowing dysphagia pureed diet. He remains confused and deconditioned in the setting of acute influenza A. He is in a normal sinus rhythm on the cardiac exercise physiologist, bedridden and has temperature of 97.8, respirations 20, pulse 80 and blood pressure 125/50 with a pulse ox of 96%. He remains on respiratory isolation and his MRI is pending isolation precautions. PHYSICAL EXAMINATION: HEENT: Head: Normocephalic, atraumatic. Eyes: No icterus. Ears: Clear. Throat: Noninjected. NECK: Supple. HEART: S1, S2. LUNGS: Occasional rhonchi that clear with coughing. ABDOMEN: Soft. No rebound, no guarding. EXTREMITIES: No edema. SKIN: Without rash. NEUROLOGICAL: Deconditioned, chronic left-sided weakness. VASCULAR: Legs warm to touch. The patient did have a formed bowel movement earlier today. LABORATORY DATA: White count 11,700, hemoglobin 13.6, hematocrit 39.3, platelets 150,000. Sodium 132, K 3.6, chloride 99, bicarb 23, BUN 14, creatinine 0.7, random blood sugar 182, calcium 9.1. PSA 5.6. TSH 1.61. Serology for influenza A positive. IMPRESSION: A 73-year-old male with acute influenza A, deconditioning, dehydration, continued fevers, metabolic encephalopathy with difficulty swallowing, secondary to confusional state and history of old cerebrovascular accident, lacunar type, causing chronic left-sided weakness in the setting of longstanding insulin-dependent diabetes mellitus, degenerative arthritis and deconditioning with history of peripheral neuropathy. PLAN: At present is to continue p.r.n. Zofran, scheduled Xopenex inhalational therapy, Tamiflu, IV fluids, Robitussin, Pepcid, insulin and heparin subcu. The patient continues to wear antiembolism sequential device stockings for prevention of DVT. His MRI will be ordered when medically stable. I have instructed his and daughter regarding the proper method for helping him with his pureed dysphagia diet. He will continue on aspiration precautions, isolation, neuro checks and bedside physical therapy. When medically stable, he will complete his MRI of the brain and disposition planning will be entertained. At this point in time, it is the family's desire to take this patient home with services and all of the above was discussed with the patient, family, nursing and case management. Greater than 35 minutes was spent in the care of this patient today. All questions were answered. Randee Canseco MD
[2018-11-23] MEDS: guaiFENesin 100 mg/5 ml Syrup UD PO SCH ×3 (06:25→19:03)
[2018-11-23] MEDS: Levalbuterol 0.63 MG/3 ML Inhal Soln UD IH SCH ×3 (07:15→19:51)
[2018-11-23] MEDS: Insulin Reg-MEDIUM-Coverage SC SCH ×4 (09:22→21:57)
[2018-11-23] MEDS: Sodium Chloride 0.45% 1,000 ML IV SCH (13:08)
--- NOTE | 2018-11-23 17:19 | CP.PCM.CON ---
<Juan José Smith - Last Filed: 11/23/18 17:34> History of Present Illness - History of Present Illness History of Present Illness: Podiatry consult note for Dr. Turner: 73 y/o M patient with PMH of DM II, COPD, AMS, Hiatus hernia, seen and evaluated at the bedside for toe nail injury and color change of the 2nd left toe. Patient was sleeping in his bed. Patient has altered mental status and no information could be obtained from him. As per his nurse his left 2nd toe fell yesterday leaving exposed nail bed. As per patient chart there was no overnight acute events. There was no overnight F/N/V/C or SOB. PMH: DM II, COPD, AMS, Hiatus hernia. PSH: Cardiac cath. Allergies: Penicillins. Social Hx: Former smoker. Review of Systems - Review of Systems Review of Systems: As per HPI - Constitutional Constitutional: As Per HPI Past Patient History - Infectious Disease Hx of Infectious Diseases: None - Tetanus Immunizations Tetanus Immunization: Unknown - Past Social History Smoking Status: Former Smoker - CARDIAC Hx Cardiac Disorders: Yes (coronary stent) Hx Hypercholesterolemia: Yes Hx Hypertension: Yes - PULMONARY Hx Chronic Obstructive Pulmonary Disease (COPD): Yes - NEUROLOGICAL Hx Neurological Disorder: No - HEENT Hx HEENT Problems: No - RENAL Hx Chronic Kidney Disease: Yes Hx Kidney Stones: Yes (PASSED IT) - ENDOCRINE/METABOLIC Hx Diabetes Mellitus Type 2: Yes - HEMATOLOGICAL/ONCOLOGICAL Hx Blood Disorders: No - INTEGUMENTARY Hx Dermatological Problems: No - MUSCULOSKELETAL/RHEUMATOLOGICAL Hx Musculoskeletal Disorders: Yes (PT HAS H/O SOMETHING HIT HIS HEAD AND INJURED HIS NOSE.) Hx Falls: Yes Hx Osteoarthritis: Yes Hx Unsteady Gait: Yes (WALKER) - GASTROINTESTINAL Hx Gastrointestinal Disorders: Yes Other/Comment: hiatal hernia - GENITOURINARY/GYNECOLOGICAL Hx Genitourinary Disorders: Yes Hx Incontinence: Yes Hx Urinary Tract Infection: Yes (--) - PSYCHIATRIC Hx Psychophysiologic Disorder: Yes (INSOMNIA) Hx Depression: Yes Hx Substance Use: No - SURGICAL HISTORY Hx Surgeries: Yes (CARD CATH WITH 1 STENT.) Hx Cardiac Catheterization: Yes Hx Coronary Stent: Yes (X1) - ANESTHESIA Hx Anesthesia Reactions: No Hx Malignant Hyperthermia: No Meds Allergies/Adverse Reactions: Allergies Allergy/AdvReac Type Severity Reaction Status Date / Time Penicillins Allergy ANAPHYLAXIS Verified 11/17/18 13:52 - Medications Medications: Current Medications Acetaminophen (Tylenol 325mg Tab) 650 mg PO Q4H PRN PRN Reason: Fever >100.4 F Last Admin: 11/21/18 02:24 Dose: 650 mg Famotidine (Pepcid) 20 mg PO DAILY [facility] Last Admin: 11/23/18 09:22 Dose: 20 mg Guaifenesin (Robitussin) 100 mg PO Q6 [facility] Last Admin: 11/23/18 13:02 Dose: 100 mg Heparin Sodium (Porcine) (Heparin) 5,000 units SC Q8 [facility]; Protocol Last Admin: 11/23/18 13:06 Dose: 5,000 units Sodium Chloride (Sodium Chloride 0.45%) 1,000 mls @ 80 mls/hr IV .[id number] [facility] Last Admin: 11/23/18 13:08 Dose: 80 mls/hr Insulin Human Regular (Humulin R Med) 0 units SC ACHS [facility]; Protocol Last Admin: 11/23/18 13:02 Dose: 1 unit Levalbuterol HCl (Xopenex) 0.63 mg IH TIDRESP [facility] Last Admin: 11/23/18 13:05 Dose: 0.63 mg Mupirocin (Bactroban Ointment) 0 gm TOP BID [facility] Ondansetron HCl (Zofran Inj) 4 mg IVP Q8H PRN PRN Reason: Nausea/Vomiting Last Admin: 11/18/18 14:17 Dose: 4 mg Oseltamivir Phosphate (Tamiflu Cap) 75 mg PO BID [facility]; Protocol Last Admin: 11/23/18 09:22 Dose: 75 mg Physical Exam - Head Exam Head Exam: ATRAUMATIC - Extremities Exam Additional comments: B/L lower extremity focused exam: Vascular: DP/PT 2/4, Cap refill < 3 seconds, Temp gradient warm to cool from proximal to distal, no edema appreciated to b/l extremities. Toe tips (R 1 and 2 and left 1-3) looks erythematous, Left 2nd toe looks purple in color. Neuro: Couldn't be assessed, Patient not cooperative. Derm: Elongated/dystrophic/Discolored and thickened toe nails x10 noted. Toe tips (R 1 and 2 and left 1-3) looks erythematous, Left 2nd toe looks purple in color. open lesion noted on the tip of the left 2nd toe at the nail bed site. No tracking, probing to bone or undermining. Minimal serous drainage noted. Right 2nd toe is covered by dry scab. MSK: Muscle power couldn't be assessed, Patient not cooperative. Results - Vital Signs Recent Vital Signs: Last Vital Signs Temp 98.5 F 11/23/18 06:00 Pulse 81 11/23/18 10:00 Resp 18 11/23/18 06:00 BP 157/65 H 11/23/18 06:00 Pulse Ox 97 11/23/18 06:00 - Labs Result Diagrams: 11/20/18 07:30 11/20/18 07:30 Assessment & Plan - Assessment and Plan (Free Text) Assessment: 73 y/o M patient with no known PMH seen and evaluated at the bedside for toe nail injury and color change of the 2nd left toe. Plan: Patient seen and evaluated Discussed in detail with Dr. Turner Charts, labs and vitals reviewed; VSS, WBC 11.7. Wound culture collected and sent to lab from the left 2nd toe nail bed. Ordered left foot 3 views X-ray. Left 2nd toe cleansed witrh saline and dressed using xeroform, DSD. Ordered bactroban to be added to the dressing starting tomorrow. Ordered Multipodus boots. Patient to wear the multipodus boots all the times while in bed. Thank you for the consult - Date & Time Date: 11/23/18 Time: 17:18 <Yves Turner - Last Filed: 11/24/18 17:11> Meds - Medications Medications: Current Medications Acetaminophen (Tylenol 325mg Tab) 650 mg PO Q4H PRN PRN Reason: Fever >100.4 F Last Admin: 11/24/18 05:40 Dose: 650 mg Famotidine (Pepcid) 20 mg PO DAILY [facility] Last Admin: 11/24/18 09:52 Dose: 20 mg Guaifenesin (Robitussin) 100 mg PO Q6 [facility] Last Admin: 11/24/18 12:46 Dose: 100 mg Heparin Sodium (Porcine) (Heparin) 5,000 units SC Q8 [facility]; Protocol Last Admin: 11/24/18 15:08 Dose: 5,000 units Sodium Chloride (Sodium Chloride 0.45%) 1,000 mls @ 80 mls/hr IV .[id number] [facility] Last Admin: 11/24/18 01:57 Dose: 80 mls/hr Insulin Human Regular (Humulin R Med) 0 units SC ACHS [facility]; Protocol Last Admin: 11/24/18 11:16 Dose: 5 unit Levalbuterol HCl (Xopenex) 0.63 mg IH TIDRESP [facility] Last Admin: 11/24/18 13:20 Dose: 0.63 mg Mupirocin (Bactroban Ointment) 0 gm TOP BID [facility] Last Admin: 11/24/18 09:54 Dose: 1 applic Ondansetron HCl (Zofran Inj) 4 mg IVP Q8H PRN PRN Reason: Nausea/Vomiting Last Admin: 11/18/18 14:17 Dose: 4 mg Oseltamivir Phosphate (Tamiflu Cap) 75 mg PO BID [facility]; Protocol Last Admin: 11/24/18 09:51 Dose: 75 mg Results - Vital Signs Recent Vital Signs: Last Vital Signs Temp 98.4 F 11/24/18 12:00 Pulse 67 11/24/18 12:00 Resp 18 11/24/18 12:00 BP 139/67 11/24/18 12:00 Pulse Ox 94 L 11/24/18 06:00 - Labs Result Diagrams: 11/20/18 07:30 11/20/18 07:30 Attending/Attestation - Attestation I have personally seen and examined this patient.: Yes I have fully participated in the care of the patient.: Yes I have reviewed all pertinent clinical information: Yes
[2018-11-23] MEDS: Mupirocin 2% Ointment 15 GM TUBE TOP SCH (19:05)
[2018-11-24] MEDS: guaiFENesin 100 mg/5 ml Syrup UD PO SCH ×5 (01:56→23:46)
[2018-11-24] MEDS: Sodium Chloride 0.45% 1,000 ML IV SCH (01:57)
[2018-11-24] MEDS: Levalbuterol 0.63 MG/3 ML Inhal Soln UD IH SCH ×4 (07:10→20:30)
[2018-11-24] MEDS: Insulin Reg-MEDIUM-Coverage SC SCH ×3 (07:55→17:26)
[2018-11-24] MEDS: Mupirocin 2% Ointment 15 GM TUBE TOP SCH ×2 (09:54→17:26)
--- NOTE | 2018-11-24 12:12 | CP.PCM.PN ---
<Juan José Smith - Last Filed: 11/24/18 12:43> Subjective - Date & Time of Evaluation Date of Evaluation: 11/24/18 Time of Evaluation: 12:43 - Subjective Subjective: Podiatry consult note for Dr. Turner: 73 y/o M patient with PMH of DM II, COPD, AMS, Hiatus hernia, seen and evaluated at the bedside for toe nail injury and color change of the 2nd left toe. Patient was setting in his bed with his at the bedside Patient went today for arterial ultrasound LE and foot X-ray. As per patient chart there was no overnight acute events. His states that there was no overnight F/N/V/C or SOB. Objective - Vital Signs/Intake and Output Vital Signs (last 24 hours): Temp Pulse Resp BP Pulse Ox 98.0 F 77 20 134/73 94 L 11/24/18 06:00 11/24/18 06:00 11/24/18 06:00 11/24/18 06:00 11/24/18 06:00 Intake and Output: 11/24/18 11/24/18 06:59 18:59 Intake Total 1810 Balance 1810 - Medications Medications: Current Medications Acetaminophen (Tylenol 325mg Tab) 650 mg PO Q4H PRN PRN Reason: Fever >100.4 F Last Admin: 11/24/18 05:40 Dose: 650 mg Famotidine (Pepcid) 20 mg PO DAILY [facility] Last Admin: 11/24/18 09:52 Dose: 20 mg Guaifenesin (Robitussin) 100 mg PO Q6 [facility] Last Admin: 11/24/18 05:39 Dose: 100 mg Heparin Sodium (Porcine) (Heparin) 5,000 units SC Q8 [facility]; Protocol Last Admin: 11/24/18 05:39 Dose: 5,000 units Sodium Chloride (Sodium Chloride 0.45%) 1,000 mls @ 80 mls/hr IV .[id number] [facility] Last Admin: 11/24/18 01:57 Dose: 80 mls/hr Insulin Human Regular (Humulin R Med) 0 units SC ACHS [facility]; Protocol Last Admin: 11/24/18 11:16 Dose: 5 unit Levalbuterol HCl (Xopenex) 0.63 mg IH TIDRESP [facility] Last Admin: 11/24/18 07:10 Dose: 0.63 mg Mupirocin (Bactroban Ointment) 0 gm TOP BID [facility] Last Admin: 11/24/18 09:54 Dose: 1 applic Ondansetron HCl (Zofran Inj) 4 mg IVP Q8H PRN PRN Reason: Nausea/Vomiting Last Admin: 11/18/18 14:17 Dose: 4 mg Oseltamivir Phosphate (Tamiflu Cap) 75 mg PO BID [facility]; Protocol Last Admin: 11/24/18 09:51 Dose: 75 mg - Labs Labs: 11/20/18 07:30 11/20/18 07:30 PT 14.1 SECONDS (9.4-12.5) H 11/17/18 11:18 INR 1.25 11/17/18 11:18 APTT 36.7 Seconds (26.9-38.3) 11/19/18 06:00 - Head Exam Head Exam: ATRAUMATIC - Extremities Exam Additional comments: B/L lower extremity focused exam: Vascular: DP/PT 2/4, Cap refill < 3 seconds, Temp gradient warm to cool from proximal to distal, no edema appreciated to b/l extremities. Toe tips (R 1 and 2 and left 1-3) looks less erythematous than yesterday, Left 2nd color looks bett er than yesterday. Neuro: Couldn't be assessed, Patient not cooperative. Derm: Elongated/dystrophic/Discolored and thickened toe nails x10 noted. Toe tips (R 1 and 2 and left 1-3) looks less erythematous than yesterday, Left 2nd color looks better than yesterday. An open lesion noted on the tip of the left 2nd toe at the nail bed site. No tracking, probing to bone or undermining. Minimal serous drainage noted. Right 2nd toe is covered by dry scab. MSK: Muscle power couldn't be assessed, Patient not cooperative.Hammer toe deformity noted of the toes 2-5 b/l.. Assessment and Plan - Assessment and Plan (Free Text) Assessment: 73 y/o M patient seen and evaluated at the bedside for toe nail injury and color change of the 2nd left toe. Plan: Patient seen and evaluated Discussed in detail with Dr. Turner Charts, labs and vitals reviewed; VSS, WBC 11.7 (11/26). Wound culture collected and sent to lab from the left 2nd toe nail bed. left foot 3 views X-ray; Pending report. TASHA/PVR: L 1.24, R 1.25. Left 2nd toe cleansed with saline and dressed using betadine, bactroban and DSD. Patient to continue wearing the multipodus boots all the times while in bed. Podiatry will cotinue to follow up the patient while in house. <Yves Turner - Last Filed: 11/24/18 17:07> Objective - Vital Signs/Intake and Output Vital Signs (last 24 hours): Temp Pulse Resp BP Pulse Ox 98.4 F 67 18 139/67 94 L 11/24/18 12:00 11/24/18 12:00 11/24/18 12:00 11/24/18 12:00 11/24/18 06:00 Intake and Output: 11/24/18 11/24/18 06:59 18:59 Intake Total 1810 Balance 1810 - Medications Medications: Current Medications Acetaminophen (Tylenol 325mg Tab) 650 mg PO Q4H PRN PRN Reason: Fever >100.4 F Last Admin: 11/24/18 05:40 Dose: 650 mg Famotidine (Pepcid) 20 mg PO DAILY [facility] Last Admin: 11/24/18 09:52 Dose: 20 mg Guaifenesin (Robitussin) 100 mg PO Q6 [facility] Last Admin: 11/24/18 12:46 Dose: 100 mg Heparin Sodium (Porcine) (Heparin) 5,000 units SC Q8 [facility]; Protocol Last Admin: 11/24/18 15:08 Dose: 5,000 units Sodium Chloride (Sodium Chloride 0.45%) 1,000 mls @ 80 mls/hr IV .[id number] [facility] Last Admin: 11/24/18 01:57 Dose: 80 mls/hr Insulin Human Regular (Humulin R Med) 0 units SC ACHS [facility]; Protocol Last Admin: 11/24/18 11:16 Dose: 5 unit Levalbuterol HCl (Xopenex) 0.63 mg IH TIDRESP [facility] Last Admin: 11/24/18 13:20 Dose: 0.63 mg Mupirocin (Bactroban Ointment) 0 gm TOP BID [facility] Last Admin: 11/24/18 09:54 Dose: 1 applic Ondansetron HCl (Zofran Inj) 4 mg IVP Q8H PRN PRN Reason: Nausea/Vomiting Last Admin: 11/18/18 14:17 Dose: 4 mg Oseltamivir Phosphate (Tamiflu Cap) 75 mg PO BID [facility]; Protocol Last Admin: 11/24/18 09:51 Dose: 75 mg - Labs Labs: 11/20/18 07:30 11/20/18 07:30 PT 14.1 SECONDS (9.4-12.5) H 11/17/18 11:18 INR 1.25 11/17/18 11:18 APTT 36.7 Seconds (26.9-38.3) 11/19/18 06:00 Attending/Attestation - Attestation I have personally seen and examined this patient.: Yes I have fully participated in the care of the patient.: Yes I have reviewed all pertinent clinical information, including history, physical exam and plan: Yes
--- NOTE | 2018-11-24 12:49 | RAD ---
Date of service: 11/24/2018 PROCEDURE: Left Foot Radiographs. HISTORY: left foot ulcer. R/O OM. COMPARISON: None. FINDINGS: BONES: Normal. No fracture. JOINTS: Normal. SOFT TISSUES: Normal. OTHER FINDINGS: None. IMPRESSION: No acute findings. No evidence of osteomyelitis
--- NOTE | 2018-11-24 17:30 | PN ---
DATE: 11/23/2018 SUBJECTIVE: This 73-year-old male was examined on the cardiac fernandez at the [facility] on , 11/23/2018. His case was reviewed in detail with nurse Monalisa Rivera, registered nurse. The patient remains weak and deconditioned. The nurse reports that she is having difficulty with feeding this patient. The problem seems to be with him being able to swallow adequately. As discussed with nursing and family, this is of concern, because he needs adequate nutrition for proper improvement of his overall deconditioned state. He remains in a normal sinus rhythm on the radiographer cardiac catheterization in respiratory isolation for acute influenza A and on oral Tamiflu. He has not yet had an MRI of his brain due to his isolation status. PHYSICAL EXAMINATION: VITAL SIGNS: He is in normal sinus rhythm with a temperature of 98.1, respirations 18, pulse 80 and blood pressure 157/65 with a pulse ox of 97%. HEENT: Head: Normocephalic, atraumatic. Eyes: No icterus. Ears: Clear. Throat: Noninjected. NECK: Supple. HEART: S1, S2. LUNGS: With occasional rhonchi that clear with coughing. ABDOMEN: Soft. EXTREMITIES: No edema. SKIN: Without rash. NEUROLOGICAL: Deconditioned. VASCULAR: Legs warm to touch. PSYCHOLOGICAL: Alert and oriented x2. LABORATORY DATA: White count 11,700, hemoglobin 13.6, hematocrit 39.3, platelets 150,000. Sodium 132, K 3.6, chloride 99, bicarb 23, BUN 14, creatinine 0.7, random blood sugar 182. Influenza A serology is positive. IMPRESSION: A 73-year-old male with acute influenza A, altered mental status and metabolic encephalopathy secondary to his viral flu illness with comorbidities of peripheral neuropathy, insulin-dependent diabetes mellitus, old stroke with left-sided chronic weakness and history of degenerative arthritis. PLAN: My plans at present are to continue subcutaneous heparin, insulin, Pepcid, Robitussin, gentle IV fluids at 80 ml/hour, Tamiflu, Tylenol, Xopenex and Zofran. The patient is scheduled for an MRI of the brain as requested by Dr. Sequeira from Neurology. He will remain on respiratory isolation and a repeat speech pathology evaluation has been requested. Greater than 35 minutes was spent in the care management, review of labs, orders and x-rays and discussion of this patient with himself, family and nursing. All questions were answered. Randee Canseco MD [facility]
--- NOTE | 2018-11-24 17:37 | PN ---
DATE: 11/24/2018 SUBJECTIVE: This 73-year-old male was examined on the cardiac fernandez of the [facility] on 11/24/2018. Present for the interview was his daughter Trina, his Tsering and case was reviewed in detail with nurse Angela Garcia, registered nurse. The patient is being readied for MRI of the brain. I did review Speech Pathology notes by Thanh Jimenez. He was reevaluated because of poor nutritional intake yesterday. Now with the adjustment of the patient receiving moist, pureed with extra gravy sauces and thin liquids, he is doing better. The was instructed on the proper way to feed this patient. She notices an improvement in his oral intake. He remains in a normal sinus rhythm on the threat monitoring analyst and remains in respiratory isolation for influenza A. PHYSICAL EXAMINATION: VITAL SIGNS: Shows normal sinus rhythm, temperature 97.8, pulse 77, respirations 20 and blood pressure 134/73. Pulse ox 95% on 2 liters nasal O2. Physical exam is unchanged. IMPRESSION: A 73-year-old male with metabolic encephalopathy, history of old stroke and left-sided chronic weakness, insulin-dependent diabetes mellitus, acute influenza A, deconditioning, degenerative arthritis with poor swallowing ability probably secondary to deconditioning. PLAN: The plan at present is to continue heparin subcutaneous, insulin, Pepcid, Robitussin, 0.45 saline at 80 mL/hour. He continues on Tamiflu, Xopenex inhalational therapy, Tylenol and p.r.n. Zofran. He is receiving bedside physical therapy. He will have his MRI done today. Based on clinical results, additional diagnostic workup and testing will be entertained. Greater than 35 minutes was spent in the care management, review of labs, orders, x-rays and discussion of this patient with himself, family and nursing. All questions were answered. Randee Canseco MD
[2018-11-25] MEDS: Insulin Reg-MEDIUM-Coverage SC SCH ×5 (04:49→21:20)
[2018-11-25] MEDS: guaiFENesin 100 mg/5 ml Syrup UD PO SCH ×3 (06:03→18:06)
[2018-11-25] MEDS: Levalbuterol 0.63 MG/3 ML Inhal Soln UD IH SCH ×3 (08:34→19:36)
[2018-11-25] MEDS: Mupirocin 2% Ointment 15 GM TUBE TOP SCH ×2 (09:47→18:07)
--- NOTE | 2018-11-25 10:44 | CP.PCM.PN ---
<Devan Almaguergeorge - Last Filed: 11/25/18 10:40> Subjective - Date & Time of Evaluation Date of Evaluation: 11/25/18 Time of Evaluation: 10:41 - Subjective Subjective: Podiatry consult note for Dr. Turner: 73 y/o M patient seen and evaluated at the bedside for toe nail injury and color change of the 2nd left toe. Patient was seen sleeping in bed. As per patient chart there was no overnight acute events. Objective - Vital Signs/Intake and Output Vital Signs (last 24 hours): Temp Pulse Resp BP Pulse Ox 98 F 68 19 151/76 H 93 L 11/25/18 08:04 11/25/18 08:04 11/25/18 08:04 11/25/18 08:04 11/25/18 08:04 Intake and Output: 11/25/18 11/25/18 06:59 18:59 Intake Total 1440 Balance 1440 - Medications Medications: Current Medications Acetaminophen (Tylenol 325mg Tab) 650 mg PO Q4H PRN PRN Reason: Fever >100.4 F Last Admin: 11/24/18 05:40 Dose: 650 mg Famotidine (Pepcid) 20 mg PO DAILY [facility] Last Admin: 11/25/18 09:47 Dose: 20 mg Guaifenesin (Robitussin) 100 mg PO Q6 [facility] Last Admin: 11/25/18 06:03 Dose: 100 mg Heparin Sodium (Porcine) (Heparin) 5,000 units SC Q8 [facility]; Protocol Last Admin: 11/25/18 06:05 Dose: 5,000 units Sodium Chloride (Sodium Chloride 0.45%) 1,000 mls @ 80 mls/hr IV .[id number] [facility] Last Admin: 11/24/18 01:57 Dose: 80 mls/hr Insulin Human Regular (Humulin R Med) 0 units SC ACHS [facility]; Protocol Last Admin: 11/25/18 08:05 Dose: 2 unit Levalbuterol HCl (Xopenex) 0.63 mg IH TIDRESP [facility] Last Admin: 11/25/18 08:34 Dose: 0.63 mg Mupirocin (Bactroban Ointment) 0 gm TOP BID [facility] Last Admin: 11/25/18 09:47 Dose: 1 applic Ondansetron HCl (Zofran Inj) 4 mg IVP Q8H PRN PRN Reason: Nausea/Vomiting Last Admin: 11/18/18 14:17 Dose: 4 mg Oseltamivir Phosphate (Tamiflu Cap) 75 mg PO BID [facility]; Protocol Last Admin: 11/25/18 09:47 Dose: 75 mg - Labs Labs: 11/20/18 07:30 11/20/18 07:30 PT 14.1 SECONDS (9.4-12.5) H 11/17/18 11:18 INR 1.25 11/17/18 11:18 APTT 36.7 Seconds (26.9-38.3) 11/19/18 06:00 - Constitutional Appears: Well, Non-toxic, No Acute Distress - Head Exam Head Exam: ATRAUMATIC, NORMOCEPHALIC - Extremities Exam Additional comments: B/L lower extremity focused exam: Vascular: DP/PT 2/4, Cap refill < 3 seconds, Temp gradient warm to cool from proximal to distal, no edema appreciated to b/l extremities. Toe tips (R 1 and 2 and left 1-3) looks less erythematous than yesterday, Left 2nd color looks better than yesterday. Neuro: unable to assess Derm: Elongated/dystrophic/Discolored and thickened toe nails x10 noted. Toe tips (R 1 and 2 and left 1-3) looks less erythematous than yesterday, Left 2nd color looks better than yesterday. An open lesion noted on the tip of the left 2nd toe at the nail bed site. No tracking, probing to bone or undermining. Minimal serous drainage noted. Right 2nd toe is covered by dry scab. MSK: Muscle power couldn't be assessed, Patient not cooperative.Hammer toe deformity noted of the toes 2-5 b/l.. - Neurological Exam Neurological Exam: Alert, Awake, Oriented x3 - Psychiatric Exam Psychiatric exam: Normal Affect, Normal Mood Assessment and Plan - Assessment and Plan (Free Text) Assessment: 73 y/o M patient seen and evaluated at the bedside for toe nail injury and color change of the 2nd left toe. Plan: Patient seen and evaluated with Dr. Turner Discussed in detail with Dr. Turner Charts, labs and vitals reviewed; VSS, WBC 11.7 (11/26). Wound culture: no growth after 24 hours Left foot 3 views X-ray: no acute findings, no evidence of osteo TASHA/PVR: L 1.24, R 1.25. Left 2nd toe cleansed with saline and dressed using betadine, bactroban and DSD. Patient to continue wearing the multipodus boots all the times while in bed. Podiatry will continue to follow up the patient while in house. <JohnnyYves - Last Filed: 11/28/18 13:13> Objective - Vital Signs/Intake and Output Vital Signs (last 24 hours): Temp Pulse Resp BP Pulse Ox 97.7 F 62 19 148/91 H 96 11/28/18 07:45 11/28/18 07:45 11/28/18 07:45 11/28/18 07:45 11/28/18 07:45 Intake and Output: 11/28/18 11/28/18 06:59 18:59 Intake Total 540 Balance 540 - Medications Medications: Current Medications Acetaminophen (Tylenol 325mg Tab) 650 mg PO Q4H PRN PRN Reason: Fever >100.4 F Last Admin: 11/25/18 18:06 Dose: 650 mg Aspirin (Ecotrin) 81 mg PO DAILY [facility] Last Admin: 11/28/18 10:06 Dose: 81 mg Atorvastatin Calcium (Lipitor) 40 mg PO DIN [facility] Last Admin: 11/27/18 17:22 Dose: 40 mg Famotidine (Pepcid) 20 mg PO DAILY [facility] Last Admin: 11/28/18 10:06 Dose: 20 mg Gabapentin (Neurontin) 300 mg PO BID [facility]; Protocol Last Admin: 11/28/18 10:05 Dose: 300 mg Guaifenesin (Robitussin) 100 mg PO Q6 [facility] Last Admin: 11/28/18 05:37 Dose: 100 mg Sodium Chloride (Sodium Chloride 0.45%) 1,000 mls @ 50 mls/hr IV .Q20H [facility] Insulin Detemir (Levemir) 25 unit SC ACBD [facility] Insulin Human Regular (Humulin R Med) 0 units SC ACHS [facility]; Protocol Last Admin: 11/28/18 07:54 Dose: Not Given Levalbuterol HCl (Xopenex) 0.63 mg IH TIDRESP [facility] Last Admin: 11/28/18 07:49 Dose: 0.63 mg Lisinopril (Zestril) 10 mg PO DAILY [facility] Last Admin: 11/28/18 10:06 Dose: 10 mg Mupirocin (Bactroban Ointment) 0 gm TOP BID [facility] Last Admin: 11/28/18 10:06 Dose: 1 applic Nitroglycerin (Nitro-Bid 2% Oint) 1 ea TOP Q4H PRN PRN Reason: hypertension Ondansetron HCl (Zofran Inj) 4 mg IVP Q8H PRN PRN Reason: Nausea/Vomiting Last Admin: 11/18/18 14:17 Dose: 4 mg - Labs Labs: 11/26/18 06:25 11/27/18 07:20 PT 14.1 SECONDS (9.4-12.5) H 11/17/18 11:18 INR 1.25 11/17/18 11:18 APTT 36.7 Seconds (26.9-38.3) 11/19/18 06:00 Attending/Attestation - Attestation I have personally seen and examined this patient.: Yes I have fully participated in the care of the patient.: Yes I have reviewed all pertinent clinical information, including history, physical exam and plan: Yes
[2018-11-25] MEDS ORDERED: Clotrimazole/Betamethasone Cream(15 gm) TOP SCH (10:45)
--- NOTE | 2018-11-25 15:00 | US ---
PROCEDURE: Lower extremity TASHA exam HISTORY: Peripheral vascular disease with pain and claudication. Diabetes. Previous smoker PHYSICIAN(S): Thanh Bowers MD. FINDINGS: The resting TASHA's are normal: Right,1.25 and left, 1.24. The brachial systolic pressures are symmetric. The high thigh pressures and waveforms are relatively normal. The calf PVR waveforms augment normally. No significant gradients are noted across the thighs. The ankle and metatarsal waveforms are relatively normal and symmetric. No significant pressure gradients are noted across the lower legs. IMPRESSION: 1. Normal TASHA and PVR examination at rest.
[2018-11-25] MEDS: Sodium Chloride 0.45% 1,000 ML IV SCH (16:58)
[2018-11-25] MEDS: Insulin Detemir 100 units/ml Vial (Levemir) SC SCH (18:20)
[2018-11-26] MEDS: Sodium Chloride 0.45% 1,000 ML IV SCH ×2 (05:37→06:55)
[2018-11-26] MEDS: guaiFENesin 100 mg/5 ml Syrup UD PO SCH ×4 (05:37→21:42)
[2018-11-26 07:22] LABS: MEAN CELL VOLUME 88.4 fl (80.0-105.0); MEAN CORPUSCULAR HEMOGLOBIN 29.6 pg (25.0-35.0); MEAN CORPUSCULAR HGB CONC 33.5 g/dl (31.0-37.0); MEAN PLATELET VOLUME 9.5 fl (7.0-11.0); RBC 4.05 10^6/uL (3.5-6.1); RED CELL DISTRIBUTION WIDTH 12.5 % (11.5-14.5); WHITE BLOOD COUNT 7.6 10^3/uL (4.5-11.0)
[2018-11-26 07:51] LABS: ALBUMIN 3.2 g/dL (3.0-4.8); ALT/SGPT 28 U/L (7-56); AST/SGOT 28 U/L (17-59); BLOOD UREA NITROGEN 9 mg/dL (7-21); CALCIUM 9.1 mg/dL (8.4-10.5); GFR NON-AFRICAN AMERICAN > 60; HDL CHOLESTEROL 16 mg/dL (29-60)
[2018-11-26 08:01] LABS: LDL CHOLESTEROL 76 mg/dL (0-129)
[2018-11-26] MEDS: Levalbuterol 0.63 MG/3 ML Inhal Soln UD IH SCH ×3 (08:12→19:31)
[2018-11-26] MEDS: Insulin Reg-MEDIUM-Coverage SC SCH ×4 (08:16→21:41)
[2018-11-26] MEDS: Insulin Detemir 100 units/ml Vial (Levemir) SC SCH ×2 (08:17→17:53)
[2018-11-26] MEDS: Mupirocin 2% Ointment 15 GM TUBE TOP SCH ×2 (09:41→17:47)
[2018-11-26] MEDS ORDERED: Potassium Chloride 20 mEq ER Tab PO ONE (11:40)
[2018-11-26] MEDS ORDERED: Nitroglycerin 2% Ointment Foilpak UD TOP PRN (11:42)
--- NOTE | 2018-11-26 12:34 | CP.PCM.PN ---
<RosinaFadumo eplletier - Last Filed: 11/26/18 12:31> Subjective - Date & Time of Evaluation Date of Evaluation: 11/26/18 Time of Evaluation: 12:31 - Subjective Subjective: Podiatry progress note for Dr. Turner: 73 y/o M patient seen and evaluated at the bedside for toe nail injury and color change of the 2nd left toe. Patient was seen sleeping in bed. As per patient chart there was no overnight acute events. Objective - Vital Signs/Intake and Output Vital Signs (last 24 hours): Temp Pulse Resp BP Pulse Ox 97.7 F 72 22 165/72 H 96 11/26/18 08:24 11/26/18 09:41 11/26/18 08:24 11/26/18 09:41 11/26/18 08:24 - Medications Medications: Current Medications Acetaminophen (Tylenol 325mg Tab) 650 mg PO Q4H PRN PRN Reason: Fever >100.4 F Last Admin: 11/25/18 18:06 Dose: 650 mg Atorvastatin Calcium (Lipitor) 10 mg PO DIN [facility] Last Admin: 11/25/18 18:06 Dose: 10 mg Famotidine (Pepcid) 20 mg PO DAILY [facility] Last Admin: 11/26/18 09:41 Dose: 20 mg Gabapentin (Neurontin) 300 mg PO BID [facility]; Protocol Last Admin: 11/26/18 09:41 Dose: 300 mg Guaifenesin (Robitussin) 100 mg PO Q6 [facility] Last Admin: 11/26/18 12:24 Dose: 100 mg Heparin Sodium (Porcine) (Heparin) 5,000 units SC Q8 [facility]; Protocol Last Admin: 11/26/18 06:56 Dose: 5,000 units Sodium Chloride (Sodium Chloride 0.45%) 1,000 mls @ 80 mls/hr IV .[id number] [facility] Last Admin: 11/26/18 06:55 Dose: 80 mls/hr Insulin Detemir (Levemir) 15 unit SC ACBD [facility] Last Admin: 11/26/18 08:17 Dose: 15 unit Insulin Human Regular (Humulin R Med) 0 units SC ACHS [facility]; Protocol Last Admin: 11/26/18 12:20 Dose: 3 unit Levalbuterol HCl (Xopenex) 0.63 mg IH TIDRESP [facility] Last Admin: 11/26/18 08:12 Dose: 0.63 mg Lisinopril (Zestril) 10 mg PO DAILY [facility] Mupirocin (Bactroban Ointment) 0 gm TOP BID [facility] Last Admin: 11/26/18 09:41 Dose: 1 applic Nitroglycerin (Nitro-Bid 2% Oint) 1 ea TOP Q4H PRN PRN Reason: hypertension Ondansetron HCl (Zofran Inj) 4 mg IVP Q8H PRN PRN Reason: Nausea/Vomiting Last Admin: 11/18/18 14:17 Dose: 4 mg - Labs Labs: 11/26/18 06:25 11/26/18 06:25 PT 14.1 SECONDS (9.4-12.5) H 11/17/18 11:18 INR 1.25 11/17/18 11:18 APTT 36.7 Seconds (26.9-38.3) 11/19/18 06:00 - Constitutional Appears: Well, Non-toxic, No Acute Distress - Head Exam Head Exam: ATRAUMATIC, NORMOCEPHALIC - Extremities Exam Additional comments: B/L lower extremity focused exam: Vascular: DP/PT 2/4, Cap refill < 3 seconds, Temp gradient warm to cool from proximal to distal, no edema appreciated to b/l extremities. Neuro: unable to assess Derm: Left 2nd digit nail bed injury noted with erythema, looks better than yesterday, No tracking, probing to bone or undermining, no drainage noted MSK: Muscle power couldn't be assessed, Patient not cooperative.Hammer toe deformity noted of the toes 2-5 b/l - Neurological Exam Neurological Exam: Alert, Awake - Psychiatric Exam Psychiatric exam: Normal Affect, Normal Mood Assessment and Plan - Assessment and Plan (Free Text) Assessment: 73 y/o M patient seen and evaluated at the bedside for toe nail injury and color change of the 2nd left toe. Plan: Patient seen and evaluated with Dr. Turner Discussed in detail with Dr. Turner Charts, labs and vitals reviewed; VSS, WBC 7.6 (11/26). Wound culture: no growth after 24 hours Left foot 3 views X-ray: no acute findings, no evidence of osteo TASHA/PVR: L 1.24, R 1.25. Left 2nd toe cleansed with saline and dressed using bactroban and DSD. Patient to continue wearing the multipodus boots all the times while in bed. No plan for podiatric intervention at this time Podiatry will continue to follow up the patient while in house. <Yves Turner - Last Filed: 11/28/18 13:11> Objective - Vital Signs/Intake and Output Vital Signs (last 24 hours): Temp Pulse Resp BP Pulse Ox 97.7 F 62 19 148/91 H 96 11/28/18 07:45 11/28/18 07:45 11/28/18 07:45 11/28/18 07:45 11/28/18 07:45 Intake and Output: 11/28/18 11/28/18 06:59 18:59 Intake Total 540 Balance 540 - Medications Medications: Current Medications Acetaminophen (Tylenol 325mg Tab) 650 mg PO Q4H PRN PRN Reason: Fever >100.4 F Last Admin: 11/25/18 18:06 Dose: 650 mg Aspirin (Ecotrin) 81 mg PO DAILY [facility] Last Admin: 11/28/18 10:06 Dose: 81 mg Atorvastatin Calcium (Lipitor) 40 mg PO DIN [facility] Last Admin: 11/27/18 17:22 Dose: 40 mg Famotidine (Pepcid) 20 mg PO DAILY [facility] Last Admin: 11/28/18 10:06 Dose: 20 mg Gabapentin (Neurontin) 300 mg PO BID [facility]; Protocol Last Admin: 11/28/18 10:05 Dose: 300 mg Guaifenesin (Robitussin) 100 mg PO Q6 [facility] Last Admin: 11/28/18 05:37 Dose: 100 mg Sodium Chloride (Sodium Chloride 0.45%) 1,000 mls @ 50 mls/hr IV .Q20H [facility] Insulin Detemir (Levemir) 25 unit SC ACBD [facility] Insulin Human Regular (Humulin R Med) 0 units SC ACHS [facility]; Protocol Last Admin: 11/28/18 07:54 Dose: Not Given Levalbuterol HCl (Xopenex) 0.63 mg IH TIDRESP [facility] Last Admin: 11/28/18 07:49 Dose: 0.63 mg Lisinopril (Zestril) 10 mg PO DAILY [facility] Last Admin: 11/28/18 10:06 Dose: 10 mg Mupirocin (Bactroban Ointment) 0 gm TOP BID [facility] Last Admin: 11/28/18 10:06 Dose: 1 applic Nitroglycerin (Nitro-Bid 2% Oint) 1 ea TOP Q4H PRN PRN Reason: hypertension Ondansetron HCl (Zofran Inj) 4 mg IVP Q8H PRN PRN Reason: Nausea/Vomiting Last Admin: 11/18/18 14:17 Dose: 4 mg - Labs Labs: 11/26/18 06:25 11/27/18 07:20 PT 14.1 SECONDS (9.4-12.5) H 11/17/18 11:18 INR 1.25 11/17/18 11:18 APTT 36.7 Seconds (26.9-38.3) 11/19/18 06:00 Attending/Attestation - Attestation I have personally seen and examined this patient.: Yes I have fully participated in the care of the patient.: Yes I have reviewed all pertinent clinical information, including history, physical exam and plan: Yes
--- NOTE | 2018-11-26 19:43 | PN ---
DATE: 11/26/2018 SUBJECTIVE: This 73-year-old male was examined at bedside on the afternoon of 11/26/2018. Present for the interview was his Tsering and nurse, Rush Thornton, Registered Nurse. The patient is alert but confused to person, place, and time. He remains weak and deconditioned and to date has not yet completed his MRI of the brain. According to Nursing and his , he is doing better with swallowing, his dysphagia pureed diet with generous gravies and denies any fever, chills, chest pain, or shortness of breath. PHYSICAL EXAMINATION: VITAL SIGNS: Temperature is 97.7, respirations 22, pulse 70, and blood pressure 165/72, pulse ox 96% on room air. HEENT: Head: Normocephalic, atraumatic. Eyes: No icterus. Ears: Clear. Throat: Noninjected. NECK: Supple. HEART: S1, S2. LUNGS: With occasional rhonchi that cleared with coughing. ABDOMEN: Soft. EXTREMITIES: No edema. SKIN: Without rash. NEUROLOGICAL: Deconditioned. VASCULAR: Legs warm to touch. LABORATORY DATA: White count 7600, hemoglobin 12, hematocrit 35.8, platelets 226,000. PT/INR 1.25, PTT 36.7. Sodium 137, K 3.3, chloride 101, bicarb 26, BUN 9, creatinine 0.5, random blood sugar 177. Bilirubin 0.6, AST 28, ALT 28, alk phos 57. Cholesterol 115, triglycerides 125, LDL 76, HDL 16. T4 normal at 8.6. Influenza serology positive for influenza A. Blood and urine cultures: No growth to date. 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 PLAN: At present is to continue Bactroban ointment to his nasal passages with MRSA, subcu heparin for DVT prophylaxis, and Humulin R medium insulin coverage before meals and at bedtime, while adjusting Levemir 15 units before breakfast and dinner while maintaining the patient on aspiration precautions and a dysphagia pureed diet with copious gravies and liquids while eating, Lipitor 10 mg at dinner time, Neurontin 300 mg b.i.d., nitroglycerin 1 inch to chest wall every 4 hours p.r.n. accelerated hypertension if systolic blood pressure greater than 160 or diastolic blood pressure greater than 100, Pepcid 20 mg p.o. daily, Robitussin 5 mL every 6 hours p.r.n. cough, 0.9 saline will be dose reduced to 50 mL/hour, Tylenol 650 p.o. every 4 hours p.r.n. pain or temperature greater than 101, Xopenex inhalational therapy t.i.d., Zestril 10 mg p.o. daily, and Zofran 4 mg IV every 8 hours p.r.n. nausea and vomiting. The patient will wear heel cradles on both feet as discussed with nurse, Kay. He is being rescheduled for his MRI of the brain for the a.m. Regarding his chronic left-sided weakness, he remains on neuro checks, aspiration precautions, fall precautions, and is wearing antiembolism sequential device, antiembolism stockings with an order for physical therapy for reconditioning and gait training. As discussed with the patient and at bedside, they are both desirous of discharge to home when medically stable and declined subacute rehab and will work with home services regarding this issue. Greater than 35 minutes was spent in the care management, review of labs, and ordering of care for this patient today as well as discussion with himself, his , and nurse, Rush Thornton, Registered Nurse. All questions were answered. Randee Canseco MD
[2018-11-27] MEDS: guaiFENesin 100 mg/5 ml Syrup UD PO SCH ×4 (05:18→19:16)
[2018-11-27] MEDS: Levalbuterol 0.63 MG/3 ML Inhal Soln UD IH SCH ×3 (07:36→21:06)
[2018-11-27] MEDS: Insulin Reg-MEDIUM-Coverage SC SCH ×3 (08:13→17:12)
[2018-11-27] MEDS: Insulin Detemir 100 units/ml Vial (Levemir) SC SCH ×2 (08:19→17:22)
--- NOTE | 2018-11-27 08:32 | PN ---
DATE: 11/25/2018 SUBJECTIVE: This 73-year-old male remains hospitalized at the [facility] on 11/25/2018. He remains weak and deconditioned, but is doing somewhat better with his pureed diet with gravy and aspiration precautions. PHYSICAL EXAMINATION: VITAL SIGNS: Temperature is 98, respirations 19, pulse 68, and blood pressure 151/76 with a pulse ox of 93% on room air. HEENT: Head: Normocephalic and atraumatic. Eyes: No icterus. Ears clear. Throat: Noninjected. NECK: Supple. HEART: S1 and S2. LUNGS: With occasional rhonchi that clear with coughing. ABDOMEN: Soft. EXTREMITIES: No edema. SKIN: Without rash. NEUROLOGICAL: Intact. PSYCHOLOGICAL: Alert. VASCULAR: Legs warm to touch. LABORATORY DATA: White count 11,700, hemoglobin 13.6, hematocrit 39.3, and platelets 150,000. Sodium 132, K 3.6, chloride 99, bicarb 23, BUN 14, creatinine 0.7, and random blood sugar 221. Influenza A serology was positive. IMPRESSION: This is a 73-year-old male with marked deconditioning and metabolic encephalopathy secondary to influenza A and comorbidities of old stroke, left-sided chronic weakness, insulin-dependent diabetes mellitus, peptic ulcer disease with gastroesophageal reflux disease, degenerative arthritis and chronic obstructive pulmonary disease and peripheral neuropathy. PLAN: At present is to continue subcutaneous heparin, insulin, Pepcid, Robitussin, gentle IV fluids, Tamiflu, Tylenol, Xopenex, and Zofran. I will resume the patient's Neurontin. He will have his Levemir insulin adjusted. Physical therapy has been requested and he remains on fall and aspiration precautions with a dysphagia pureed diet with heavy maintaining Multi Podus boots and on neuro checks every shift. As discussed with his and daughter upon multiple occasions, it is their desire to take this patient home with home services as opposed to subacute rehab and this will be decided by physical therapy, psychosocial rehabilitation counselor and family within the next 48 hours. He continues with sequential compression device, antiembolism stockings and greater than 35 minutes was spent in the care management, review of labs, orders and x-rays for this patient today. All questions were answered. Randee Canseco MD [facility] # [id number] [place]
[2018-11-27 08:43] LABS: BLOOD UREA NITROGEN 8 mg/dL (7-21); CALCIUM 9.2 mg/dL (8.4-10.5); GFR NON-AFRICAN AMERICAN > 60
[2018-11-27] MEDS: Mupirocin 2% Ointment 15 GM TUBE TOP SCH ×2 (10:00→17:21)
--- NOTE | 2018-11-27 11:55 | MRI ---
Date of service: 11/27/2018 PROCEDURE: MRI BRAIN WITHOUT CONTRAST HISTORY: confusion and left sided weakness COMPARISON: Comparison made with prior CT scan brain 11/27/2018. TECHNIQUE: Multiplanar, multisequence MR images of the brain were obtained without intravenous contrast enhancement. FINDINGS: HEMORRHAGE: No acute parenchymal, subarachnoid or extra-axial hemorrhage. DWI: There is a very small focus of restricted diffusion seen in the right superior posterior newman radiata/centrum semiovale junction consistent with a tiny acute-subacute infarct BRAIN PARENCHYMA: Moderate diffuse and confluent chronic white matter ischemic changes seen extending peripherally into the deep and subcortical white matter both cerebral hemispheres. Moderate to fairly significant atrophy slightly more central evidenced by disproportionate enlargement of the ventricles compared the sulci. Additionally, there are scattered chronic bilateral basal nuclei, bilateral cerebellar and to a lesser degree brainstem chronic ischemic changes. VENTRICLES: While the ventricles are enlarged due to central volume loss, the ventricles do not appear to be under tension. CRANIUM: Unremarkable. ORBITS: The orbits and contents appear grossly unremarkable. PARANASAL SINUSES/MASTOIDS: Clear VASCULAR SYSTEM: Visualized major vascular flow voids at skull base patent. OTHER FINDINGS: None. IMPRESSION: There is a very small focus of restricted diffusion seen in the right superior posterior newman radiata/centrum semiovale junction consistent with a tiny acute-subacute infarct BRAIN PARENCHYMA: Moderate diffuse and confluent chronic white matter ischemic changes seen extending peripherally into the deep and subcortical white matter both cerebral hemispheres. Moderate to fairly significant atrophy slightly more central evidenced by disproportionate enlargement of the ventricles compared the sulci. Additionally, there are scattered chronic bilateral basal nuclei, bilateral cerebellar and to a lesser degree brainstem chronic ischemic changes. [facility] Nurse Siclary informed these findings at approximately 11:45 a.m. with written down and read back verification.
--- NOTE | 2018-11-27 13:41 | CP.PCM.PN ---
Subjective - Date & Time of Evaluation Date of Evaluation: 11/27/18 Time of Evaluation: 13:38 - Subjective Subjective: Podiatry progress note for Dr. Turner: 73 y/o M patient seen and evaluated at the bedside for toe nail injury and color change of the 2nd left toe. Patient was seen sleeping in bed. As per patient chart there was no overnight acute events. No overnight F/N/V/C or SOB. Objective - Vital Signs/Intake and Output Vital Signs (last 24 hours): Temp Pulse Resp BP Pulse Ox 98 F 66 19 140/80 97 11/27/18 06:00 11/27/18 09:32 11/27/18 06:00 11/27/18 09:32 11/27/18 06:00 - Medications Medications: Current Medications Acetaminophen (Tylenol 325mg Tab) 650 mg PO Q4H PRN PRN Reason: Fever >100.4 F Last Admin: 11/25/18 18:06 Dose: 650 mg Atorvastatin Calcium (Lipitor) 10 mg PO DIN [facility] Last Admin: 11/26/18 17:54 Dose: 10 mg Famotidine (Pepcid) 20 mg PO DAILY [facility] Last Admin: 11/27/18 09:32 Dose: 20 mg Gabapentin (Neurontin) 300 mg PO BID [facility]; Protocol Last Admin: 11/27/18 09:32 Dose: 300 mg Guaifenesin (Robitussin) 100 mg PO Q6 [facility] Last Admin: 11/27/18 05:18 Dose: 100 mg Sodium Chloride (Sodium Chloride 0.45%) 1,000 mls @ 50 mls/hr IV .Q20H [facility] Insulin Detemir (Levemir) 15 unit SC ACBD [facility] Last Admin: 11/27/18 08:19 Dose: 15 unit Insulin Human Regular (Humulin R Med) 0 units SC ACHS [facility]; Protocol Last Admin: 11/27/18 11:55 Dose: 1 unit Levalbuterol HCl (Xopenex) 0.63 mg IH TIDRESP [facility] Last Admin: 11/27/18 07:36 Dose: 0.63 mg Lisinopril (Zestril) 10 mg PO DAILY [facility] Last Admin: 11/27/18 09:32 Dose: 10 mg Mupirocin (Bactroban Ointment) 0 gm TOP BID [facility] Last Admin: 11/26/18 17:47 Dose: Not Given Nitroglycerin (Nitro-Bid 2% Oint) 1 ea TOP Q4H PRN PRN Reason: hypertension Ondansetron HCl (Zofran Inj) 4 mg IVP Q8H PRN PRN Reason: Nausea/Vomiting Last Admin: 11/18/18 14:17 Dose: 4 mg - Labs Labs: 11/26/18 06:25 11/27/18 07:20 PT 14.1 SECONDS (9.4-12.5) H 11/17/18 11:18 INR 1.25 11/17/18 11:18 APTT 36.7 Seconds (26.9-38.3) 11/19/18 06:00 - Constitutional Appears: Non-toxic - Head Exam Head Exam: ATRAUMATIC - Extremities Exam Additional comments: B/L lower extremity focused exam: Vascular: DP/PT 2/4, Cap refill < 3 seconds, Temp gradient warm to cool from proximal to distal, no edema appreciated to b/l extremities. Neuro: unable to assess. Patient is not cooperative. Derm: Left 2nd digit nail bed injury noted with mild erythema, improving, No tracking, probing to bone or undermining, no drainage noted. MSK: Muscle power couldn't be assessed, Patient not cooperative.Hammer toe deformity noted of the toes 2-5 b/l - Neurological Exam Neurological Exam: Alert, Awake Assessment and Plan - Assessment and Plan (Free Text) Assessment: 73 y/o M patient seen and evaluated at the bedside for toe nail injury and color change of the 2nd left toe. Plan: Patient seen and evaluated with Dr. Stacy Discussed in detail with Dr. Stacy Charts, labs and vitals reviewed; Afebrile, WBC 7.6 (11/26). Wound culture: no growth after 24 hours Left foot 3 views X-ray: no acute findings, no evidence of osteo TASHA/PVR: L 1.24, R 1.25. Left 2nd toe dressed using light DSD. Patient to continue wearing the multipodus boots all the times while in bed. No plan for podiatric intervention at this time Podiatry will continue to follow up the patient while in house.
--- NOTE | 2018-11-27 15:26 | PN ---
DATE: 11/27/2018 NEUROLOGY FOLLOWUP AGE: 73-year-old man. CHIEF COMPLAINT: Change in mental status. SUBJECTIVE: The patient is seen and examined at bedside, moving all extremities. No pronator drift seen. He had an MRI of the brain finally which did show small restricted diffusion in the right superior posterior newman radiata consistent with subacute infarct secondary to diffuse atherosclerotic disease, which in combination with this can make this individual altered. We will place him on aspirin 81 mg and Lipitor 40 mg for stroke prevention. There is no actual focal neurological deficit likely because since the stroke is very subacute and small. We would recommend to keep his blood sugars level well controlled and avoid hyperglycemic accelerations. PAST MEDICAL HISTORY: History of type 2 diabetes mellitus, hypertension, coronary artery disease, and COPD. FAMILY HISTORY: Noncontributory. MEDICATIONS: Reviewed by nurse's reconciliation sheet. ALLERGIES: PENICILLIN. REVIEW OF SYSTEMS: A 14-point review of systems is negative except as per HPI. PHYSICAL EXAMINATION: VITAL SIGNS: Temperature 98, pulse rate of 62, blood pressure 137/79, respiratory rate 19, and oxygen saturation 97% via room air. GENERAL: The patient is seen up in bed, in no acute distress. HEENT: Atraumatic and normocephalic, PERRLA. Extraocular muscles are intact. NECK: Supple. No JVD. No adenopathy noted. LUNGS: Clear to auscultation. No adventitious sounds. HEART: S1 and S2, normal rate and rhythm. No murmurs, rubs, or gallops. ABDOMEN: Soft, nontender, and nondistended. Bowel sounds are present. EXTREMITIES: No clubbing. No cyanosis. Peripheral pulses 2+ felt bilaterally. NEUROLOGIC: The patient is slightly lethargic, but in no acute distress. The patient is alert and oriented to person and place, but not much on month or year. Recall after 5 minutes is 1/3. Poor attention span. Slow thought process. Cranial nerves II through XII are intact. Motor Exam: Moves all extremities spontaneously, no pronator drift seen, has mild subtle residual left-sided weakness from prior CVA, which is seen on the CAT scan of the head. DTRs are 2+ and 1 at both knees and ankles. Coordination; [id number] is intact. Gait is deferred for now. LABORATORY DATA: Sodium 137, potassium 3.7, chloride 105, carbon dioxide 24, BUN of 11, creatinine 0.5, and random glucose 153. IMPRESSION: A 73-year-old man with history of type 2 diabetes mellitus, hypertension, coronary artery disease, chronic obstructive pulmonary disease, history of old right temporal and right coronary artery lacunar infarcts and also residual left-sided weakness, who presented with altered mental status, confusion and mumbling which is secondary to underlying toxic metabolic encephalopathy with superimposed underlying influenza causing the flu and subacute small right posterior newman radiata consistent with underlying infarct secondary to diffuse atherosclerotic disease. PLAN: At this time, recommend: 1. Aspirin 81 mg with Lipitor 40 mg for stroke prevention. 2. To keep his blood sugars between 140 to 180 and avoid hyperglycemic accelerations. 3. Avoid any sedative meds. 4. PT, OT evaluation. 5. Continue with current and present medical management. Thank you for the consult. Mike Sequeira MD
--- NOTE | 2018-11-27 16:40 | PN ---
DATE: 11/27/2018 SUBJECTIVE: This 73-year-old male remains hospitalized. He is in the process of completing an MRI of the brain for history of chronic left-sided weakness and neuropathy. At present, he is more alert. PHYSICAL EXAMINATION: VITAL SIGNS: Temperature is 98, respirations 19, pulse 62 and blood pressure 137/78 with a pulse ox of 97% room air. Physical exam remains unchanged. LABORATORY DATA: White count 7600, hemoglobin 12, hematocrit 35.8, platelets 326,000. Sodium 137, K 3.7, chloride 105, bicarb 27, BUN 8, creatinine 0.5, random blood sugar 153 with calcium of 9.2. IMPRESSION: This is a 73-year-old male admitted with influenza A, metabolic encephalopathy, chronic left-sided weakness, probable old right-sided stroke with left-sided weakness and comorbidities of methicillin-resistant staphylococcus aureus of the nares, hyperlipidemia, peripheral neuropathy, peptic ulcer disease with gastroesophageal reflux disease, and hypertension. PLAN: To continue Zestril, Xopenex, gentle 0.45-saline at 50 mL per hour p.r.n., Robitussin, Pepcid, nitroglycerin p.r.n. accelerated hypertension, Neurontin, Lipitor, Levemir insulin coverage and Bactroban to nares. He will have MRI completed and additional workup based on the results. He is ordered to have a pureed dysphagia diet, neurovascular checks every 4 hours, aspiration precautions, isolation, Multi Podus boots and fall precautions while wearing sequential anti-embolism device stockings. He is ordered to have bedside physical therapy and ultimate plan will be for discharge to home when medically stable. Randee Canseco MD
[2018-11-28] MEDS: Insulin Reg-MEDIUM-Coverage SC SCH ×4 (05:04→16:58)
[2018-11-28] MEDS: guaiFENesin 100 mg/5 ml Syrup UD PO SCH ×4 (05:05→17:38)
[2018-11-28] MEDS: Levalbuterol 0.63 MG/3 ML Inhal Soln UD IH SCH ×3 (07:49→20:40)
[2018-11-28] MEDS: Insulin Detemir 100 units/ml Vial (Levemir) SC SCH ×2 (08:11→16:58)
[2018-11-28] MEDS: Mupirocin 2% Ointment 15 GM TUBE TOP SCH ×2 (10:06→17:30)
--- NOTE | 2018-11-28 12:10 | CP.PCM.PN ---
<Juan José Smith - Last Filed: 11/28/18 12:07> Subjective - Date & Time of Evaluation Date of Evaluation: 11/28/18 Time of Evaluation: 12:07 - Subjective Subjective: Podiatry progress note for Dr. Turner: 73 y/o M patient seen and evaluated at the bedside for toe nail injury. Patient was seen sleeping in bed. Patient is poor historian. As per patient chart there was no overnight acute events. No overnight F/N/V/C or SOB. Objective - Vital Signs/Intake and Output Vital Signs (last 24 hours): Temp Pulse Resp BP Pulse Ox 97.7 F 62 19 148/91 H 96 11/28/18 07:45 11/28/18 07:45 11/28/18 07:45 11/28/18 07:45 11/28/18 07:45 Intake and Output: 11/28/18 11/28/18 06:59 18:59 Intake Total 540 Balance 540 - Medications Medications: Current Medications Acetaminophen (Tylenol 325mg Tab) 650 mg PO Q4H PRN PRN Reason: Fever >100.4 F Last Admin: 11/25/18 18:06 Dose: 650 mg Aspirin (Ecotrin) 81 mg PO DAILY [facility] Last Admin: 11/28/18 10:06 Dose: 81 mg Atorvastatin Calcium (Lipitor) 40 mg PO DIN [facility] Last Admin: 11/27/18 17:22 Dose: 40 mg Famotidine (Pepcid) 20 mg PO DAILY [facility] Last Admin: 11/28/18 10:06 Dose: 20 mg Gabapentin (Neurontin) 300 mg PO BID [facility]; Protocol Last Admin: 11/28/18 10:05 Dose: 300 mg Guaifenesin (Robitussin) 100 mg PO Q6 [facility] Last Admin: 11/28/18 05:37 Dose: 100 mg Sodium Chloride (Sodium Chloride 0.45%) 1,000 mls @ 50 mls/hr IV .Q20H [facility] Insulin Detemir (Levemir) 25 unit SC ACBD [facility] Insulin Human Regular (Humulin R Med) 0 units SC ACHS [facility]; Protocol Last Admin: 11/28/18 07:54 Dose: Not Given Levalbuterol HCl (Xopenex) 0.63 mg IH TIDRESP [facility] Last Admin: 11/28/18 07:49 Dose: 0.63 mg Lisinopril (Zestril) 10 mg PO DAILY [facility] Last Admin: 11/28/18 10:06 Dose: 10 mg Mupirocin (Bactroban Ointment) 0 gm TOP BID [facility] Last Admin: 11/28/18 10:06 Dose: 1 applic Nitroglycerin (Nitro-Bid 2% Oint) 1 ea TOP Q4H PRN PRN Reason: hypertension Ondansetron HCl (Zofran Inj) 4 mg IVP Q8H PRN PRN Reason: Nausea/Vomiting Last Admin: 11/18/18 14:17 Dose: 4 mg - Labs Labs: 11/26/18 06:25 11/27/18 07:20 PT 14.1 SECONDS (9.4-12.5) H 11/17/18 11:18 INR 1.25 11/17/18 11:18 APTT 36.7 Seconds (26.9-38.3) 11/19/18 06:00 - Constitutional Appears: No Acute Distress - Head Exam Head Exam: ATRAUMATIC, NORMOCEPHALIC - Extremities Exam Additional comments: B/L lower extremity focused exam: Vascular: DP/PT 2/4, Cap refill < 3 seconds, Temp gradient warm to cool from proximal to distal, no edema appreciated to b/l extremities. Neuro: unable to assess. Patient is not cooperative. Derm: Left 2nd digit nail bed is covered with dry scab, healing, no drainage, No clinical signs of active infection. 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 Plan: Patient seen and evaluated at the bedside. Discussed in detail with Dr. Turner. Charts, labs and vitals reviewed; Afebrile, WBC 7.6 (11/26). Wound culture: Coagulase negative staph. Left foot 3 views X-ray: no acute findings, no evidence of OM TASHA/PVR: L 1.24, R 1.25. Left 2nd toe dressed using light DSD and betadine. Patient to continue wearing the multipodus boots all the times while in bed. No plan for podiatric intervention at this time. Patient is stable from the podiatry stand point. Podiatry sign off the patient. <Yves Turner - Last Filed: 11/28/18 13:07> Objective - Vital Signs/Intake and Output Vital Signs (last 24 hours): Temp Pulse Resp BP Pulse Ox 97.7 F 62 19 148/91 H 96 11/28/18 07:45 11/28/18 07:45 11/28/18 07:45 11/28/18 07:45 11/28/18 07:45 Intake and Output: 11/28/18 11/28/18 06:59 18:59 Intake Total 540 Balance 540 - Medications Medications: Current Medications Acetaminophen (Tylenol 325mg Tab) 650 mg PO Q4H PRN PRN Reason: Fever >100.4 F Last Admin: 11/25/18 18:06 Dose: 650 mg Aspirin (Ecotrin) 81 mg PO DAILY [facility] Last Admin: 11/28/18 10:06 Dose: 81 mg Atorvastatin Calcium (Lipitor) 40 mg PO DIN [facility] Last Admin: 11/27/18 17:22 Dose: 40 mg Famotidine (Pepcid) 20 mg PO DAILY [facility] Last Admin: 11/28/18 10:06 Dose: 20 mg Gabapentin (Neurontin) 300 mg PO BID [facility]; Protocol Last Admin: 11/28/18 10:05 Dose: 300 mg Guaifenesin (Robitussin) 100 mg PO Q6 [facility] Last Admin: 11/28/18 05:37 Dose: 100 mg Sodium Chloride (Sodium Chloride 0.45%) 1,000 mls @ 50 mls/hr IV .Q20H [facility] Insulin Detemir (Levemir) 25 unit SC ACBD [facility] Insulin Human Regular (Humulin R Med) 0 units SC ACHS [facility]; Protocol Last Admin: 11/28/18 07:54 Dose: Not Given Levalbuterol HCl (Xopenex) 0.63 mg IH TIDRESP [facility] Last Admin: 11/28/18 07:49 Dose: 0.63 mg Lisinopril (Zestril) 10 mg PO DAILY [facility] Last Admin: 11/28/18 10:06 Dose: 10 mg Mupirocin (Bactroban Ointment) 0 gm TOP BID [facility] Last Admin: 11/28/18 10:06 Dose: 1 applic Nitroglycerin (Nitro-Bid 2% Oint) 1 ea TOP Q4H PRN PRN Reason: hypertension Ondansetron HCl (Zofran Inj) 4 mg IVP Q8H PRN PRN Reason: Nausea/Vomiting Last Admin: 11/18/18 14:17 Dose: 4 mg - Labs Labs: 11/26/18 06:25 11/27/18 07:20 PT 14.1 SECONDS (9.4-12.5) H 11/17/18 11:18 INR 1.25 11/17/18 11:18 APTT 36.7 Seconds (26.9-38.3) 11/19/18 06:00 Attending/Attestation - Attestation I have personally seen and examined this patient.: Yes I have fully participated in the care of the patient.: Yes I have reviewed all pertinent clinical information, including history, physical exam and plan: Yes
--- NOTE | 2018-11-28 15:25 | PN ---
DATE: 11/28/2018 SUBJECTIVE: This 73-year-old male remains hospitalized at the [facility] on Wednesday, November 28, 2018. He completed a MRI of the brain yesterday that was reviewed. It shows small focus of her restricted diffusion seen in the right superior posterior newman radiata centrum semiovale junction consistent with a tiny acute, subacute infarct. This was reviewed with Dr. Mike Sequeira. 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 daily and Lipitor 40 mg p.o. daily at present. PHYSICAL EXAMINATION VITAL SIGNS: The patient's temperature is 97.7, respirations 19, pulse 62 and blood pressure 148/91 with a pulse ox of 96%. Physical exam remains unchanged. LABORATORY DATA: White count 7600, hemoglobin 12, hematocrit 35.8 and platelets 326,000. Sodium 137, potassium 3.7, chloride 105, bicarb 24, BUN 8, creatinine 0.5, random blood sugar 148 and calcium 9.2. IMPRESSION: This 73-year-old male with [id number] stroke with chronic left-sided weakness, comorbidities of methicillin-resistant Staphylococcus aureus of the nares, insulin-dependent diabetes mellitus, hyperlipidemia, peripheral neuropathy, influenza A, peptic ulcer disease with gastroesophageal reflux disease, degenerative arthritis and marked deconditioning. The patient will continue on Bactroban in his nares, Ecotrin, insulin, Lipitor, Neurontin, nitroglycerin to chest wall for accelerated hypertension, Pepcid, gentle IV fluids, Tylenol, Xopenex, Zestril and Zofran. He remains on a pureed dysphagia diet with neuro checks, aspiration precautions, isolation precautions, Multi-Podus boots to both feet, sequential compression device, antiembolism stockings and physical and occupational therapy. Ultimate plan will be for discharge to home with family will provide 24 hours supervision of this patient. All of the above was reviewed with the patient, nursing, family and Dr. Sequeira. Randee Canseco MD
[2018-11-29] MEDS: Insulin Reg-MEDIUM-Coverage SC SCH ×5 (05:02→21:56)
[2018-11-29] MEDS: guaiFENesin 100 mg/5 ml Syrup UD PO SCH ×3 (05:03→21:07)
[2018-11-29] MEDS: Sodium Chloride 0.45% 1,000 ML IV SCH ×2 (05:03→21:56)
[2018-11-29] MEDS: Levalbuterol 0.63 MG/3 ML Inhal Soln UD IH SCH ×3 (07:25→21:15)
[2018-11-29] MEDS: Insulin Detemir 100 units/ml Vial (Levemir) SC SCH ×2 (10:22→17:32)
[2018-11-29] MEDS: Mupirocin 2% Ointment 15 GM TUBE TOP SCH ×2 (10:23→17:34)
--- NOTE | 2018-11-29 15:14 | PN ---
DATE: 11/29/2018 SUBJECTIVE: This 73-year-old male was examined at his bedside in the presence of his nurse and his daughter, Trina, and Tsering. He has a sacral irritation that is being treated with an Optifoam dressing and I will ask the wound care nurse to outline further instructions prior to his discharge. At present, Scrip Clerk in the process of obtaining all home care needs including hospital bed, wheelchair, shower chairs, and visiting nurse visits while in his house as well as physical therapy. PHYSICAL EXAMINATION: On physical exam today, he is alert and oriented with a temperature of 98.6, respirations 18, pulse 86 and blood pressure 125/70. Pulse ox is 96% on room air. Physical exam is unchanged. LABORATORY DATA: White count 7600, hemoglobin 12, hematocrit 35.8, and platelets 326,000. Random blood sugar 144. Sodium 137, K 3.7, chloride 105, bicarb 24, BUN 8, creatinine 0.5, and calcium 9.2. IMPRESSION: A 73-year-old male admitted with influenza A, now improved with comorbidities of old stroke, new small acute stroke with chronic left-sided weakness, MRSA of the nares, insulin-dependent diabetes mellitus, hyperlipidemia, peripheral neuropathy, peptic ulcer disease with gastroesophageal reflux disease, degenerative arthritis and sacral irritation with marked deconditioning. PLAN: The plan at present is to continue Zestril, Pepcid, Neurontin, Lipitor, Levemir insulin coverage, Ecotrin and Bactroban ointment to his nares. We are arranging home care needs. I will order a wound care nursing evaluation for sacral decubitus orders at home and will apply Optifoam dressing at the present time to his sacrum. He continues on a pureed dysphagia diet with aspiration precautions, Multi Podus boots and fall precautions, and all of the above was discussed in detail with the patient and and daughter at bedside. All questions were answered. Randee Canseco MD
[2018-11-30] MEDS: guaiFENesin 100 mg/5 ml Syrup UD PO SCH ×3 (05:29→16:43)
[2018-11-30 07:45] VITALS: RESP 18; O2SAT 93
[2018-11-30] MEDS: Insulin Detemir 100 units/ml Vial (Levemir) SC SCH (08:43)
[2018-11-30] MEDS: Levalbuterol 0.63 MG/3 ML Inhal Soln UD IH SCH ×2 (09:40→13:22)
[2018-11-30] MEDS: Mupirocin 2% Ointment 15 GM TUBE TOP SCH (10:54)
[2018-11-30] MEDS: Insulin Reg-MEDIUM-Coverage SC SCH ×2 (11:59→16:43)
[2018-11-30 14:57] VITALS: BP 109/58; PULSE 77; TEMP 98
--- NOTE | 2018-11-30 23:53 | DS ---
FINAL DIAGNOSES: Status post influenza A, deconditioning, acute stroke, old stroke, chronic left-sided weakness, insulin-dependent diabetes mellitus, hyperlipidemia, peripheral neuropathy, chronic hypertension, and degenerative arthritis. DISPOSITION: Home with family providing 24 hours supervision, visiting nurse, and home physical therapy. DISCHARGE DIET: Heart healthy, dysphagia pureed with aspiration precautions. DISCHARGE MEDICATIONS: Ecotrin 81 mg p.o. daily, Levemir 25 units a.c. breakfast, dinner, Lipitor 40 mg p.o. at dinner time, Neurontin 300 mg b.i.d., Pepcid 20 mg p.o. at bedtime, and Zestril 10 mg p.o. daily. HOSPITAL COURSE: This 73-year-old male was admitted to the [facility] with acute influenza A and was noted to have left-sided weakness and a neurological workup confirmed a small new acute right-sided infarct with old lacunar infarcts in the past. He was seen in consultation by Dr. Mike Sequeira from Neurology who concurred with medical management and adjusted medication and at the time of discharge, the patient's temperature was 97.9, respirations 18, pulse 63 and blood pressure 110/69 with pulse ox 94% on room air. Discharge labs show white count 7600, hemoglobin 12, hematocrit 35.8, and platelets 326,000. Random blood sugars were 124-173 mg/dL with a sodium of 137, K of 3.7, chloride 105, bicarb 24, BUN 8, creatinine 0.5 and calcium 9.2. Influenza A was positive on 11/18/2018. The patient was medically stable at the time of discharge and will be treated at home by his Tsering who declined subacute rehab. Greater than 35 minutes was spent in the discharge management of this patient including outlining of orders, medication, instructions and discussion with visiting nurse as well as family at bedside. All questions were answered. Randee Canseco MD
== END 2018-11-30 15:05 | disposition home or self-care (01) | DRG 64 ==
LOC: ED 10:06 → ERH 13:30 → 2RNO 16:15 → 5RSO 11-24 20:10
PROVIDERS: ADMIT Internal Medicine; ATTEND Internal Medicine
DX: I63.9 Cerebral infarction, unspecified (principal); G93.41 Metabolic encephalopathy; I69.354 Hemiplegia and hemiparesis following cerebral infarction affecting left non-dominant side; J10.1 Influenza due to other identified influenza virus with other respiratory manifestations; E86.0 Dehydration; K52.9 Noninfective gastroenteritis and colitis, unspecified; E11.42 Type 2 diabetes mellitus with diabetic polyneuropathy; N40.0 Benign prostatic hyperplasia without lower urinary tract symptoms; E11.65 Type 2 diabetes mellitus with hyperglycemia; I25.10 Atherosclerotic heart disease of native coronary artery without angina pectoris; I10 Essential (primary) hypertension; R13.10 Dysphagia, unspecified; D64.9 Anemia, unspecified; E66.9 Obesity, unspecified; Z68.25 Body mass index [BMI] 25.0-25.9, adult; E78.00 Pure hypercholesterolemia, unspecified; E78.5 Hyperlipidemia, unspecified; G93.89 Other specified disorders of brain; I45.10 Unspecified right bundle-branch block; I67.2 Cerebral atherosclerosis; J43.9 Emphysema, unspecified; K21.9 Gastro-esophageal reflux disease without esophagitis; M19.90 Unspecified osteoarthritis, unspecified site; Z78.9 Other specified health status; Z79.1 Long term (current) use of non-steroidal anti-inflammatories (NSAID); Z79.4 Long term (current) use of insulin; Z79.82 Long term (current) use of aspirin; Z79.899 Other long term (current) drug therapy; Z87.11 Personal history of peptic ulcer disease; Z87.440 Personal history of urinary (tract) infections; Z87.442 Personal history of urinary calculi; Z87.891 Personal history of nicotine dependence; Z88.0 Allergy status to penicillin; Z95.5 Presence of coronary angioplasty implant and graft; Z87.892 Personal history of anaphylaxis